=== PATIENT | male | born 1960 | race Caucasian/White ===

== ENCOUNTER 2020-11-17 15:58 | Emergency (ER) | payer OTHER, SELFPAY ==
--- NOTE | ~2020-11-17 | CT_ITS ---
EXAMINATION: CT abdomen pelvis wo con DATE: 11/17/2020 18:24 INDICATION: Hematuria. TECHNIQUE: Computed tomography (CT) of the abdomen and pelvis was performed without intravenous contr ast. Automated exposure control and iterative reconstruction technique were employed. The dose-length product was 335.93 mGy-cm. COMPARISON: 07/25/2018 FINDINGS: Linear discoid atelectasis at the bilateral lung bases. Heart size is normal. Atherosclerotic coronar y artery calcification. No pericardial or pleural effusion. Small sliding-type hiatal hernia. Postope rative change of prior splenectomy with stable appearance of some residual splenosis along with some surgical clips at the splenic fossa. No interval change in an 8 mm low-attenuation hepatic cyst. Gall bladder, pancreas and bilateral adrenal glands are normal. Multiple bilateral renal cysts, the larges t measuring 10.3 cm. No urolithiasis or hydronephrosis. There are few scattered colonic diverticula w ithout adjacent inflammatory change to suggest diverticulitis. Small bowel and appendix are normal. B ladder is normal. No free intraperitoneal gas or fluid. No pathologically enlarged abdominal or pelvi c lymphadenopathy. Small fat-containing umbilical hernia. Severe lower lumbar spondylosis. L2 bone is land. IMPRESSION: 1. Multiple bilateral renal cysts. No urolithiasis or hydronephrosis. Reviewed, dictated and finalized at location A.
[2020-11-17 16:01] VITALS: BP 119/81; PULSE 98; RESP 18; TEMP 36.7; O2SAT 98
[2020-11-17 16:56] LABS: Add Urine Microscopic? YES; Appearance Urine Cloudy (Clear); Bilirubin Urine Negative (Negative); Blood Urine 3+ (Negative); Color Urine Amber (Yellow); Glucose Urine UA Negative (Negative); Ketones Urine Negative (Negative); Leukocyte Esterase Ur 2+ LEU/UL (Negative); Mucus Urine Rare /lpf; Nitrate Urine Negative (Negative); Protein Urine 2+ mg/dL (Negative); RBC Urine >75 /hpf (0-2); Specific Grav Ur 1.021 (1.001-1.035); Squamous Epithelial Cell Urine Rare /hpf (Few); Urobilinogen Urine Negative mg/dL (<2.0); WBC Urine >75 /hpf
--- NOTE | 2020-11-17 17:45 | ED.GENADULT ---
HPI - General Adult General Chief complaint: Urogenital-Male Stated complaint: ? Blood in Urine/I don't feel good Time Seen by Provider: 11/17/20 17:32 History of Present Illness HPI narrative: Patient 60-year-old gentleman who presents the emergency department with chief complaint of hematuria. The patient noticed on Tuesday that he started having some blood in his urine the patient reports he has prior history of kidney stones reports he is discounted felt generally unwell. Patient denies fever denies vomiting denies diarrhea. The patient reports that the symptoms are unimproved by anything nor they worsened by anything the patient reports that his urine color is close to a pink lemonade color denies clots Related Data Home Medications Medication Instructions Recorded Confirmed evolocumab [Repatha SureClick] mg SUBCUT 11/17/20 lisinopril 11/17/20 rivaroxaban [Xarelto] mg 11/17/20 rosuvastatin mg 11/17/20 venlafaxine 25 mg PO DAILY 11/17/20 Allergies Allergy/AdvReac Type Severity Reaction Status Date / Time No Known Allergies Allergy Verified 11/17/20 17:47 Review of Systems Review of Systems: A 10 system review of systems was completed on the patient and is negative except for what is stated in the HPI. Nursing and ancillary documentation was reviewed. Exam Narrative: GENERAL: Well-appearing, well-nourished, and in no acute distress. HEAD: Normocephalic, atraumatic. EYES: PERRLA and EOMI. ENT: Nares clear, no rhinorrhea or epistaxis. Mucous membranes moist. NECK: Supple. CHEST: Clear to auscultation. No respiratory distress. HEART: Regular rate and rhythm. No murmur heard. Normal peripheral pulses. ABDOMEN: Soft, nontender, nondistended, normal active bowel sounds. EXTREMITIES: Normal range of motion. No edema. SKIN: Warm, dry, no rash. NEURO: No focal deficits. Alert and oriented x3. PSYCH: Normal mood and affect. Course Vital Signs Vital signs: Vital Signs Temperature 36.7 C 11/17/20 16:01 Pulse Rate 98 11/17/20 16:01 Respiratory Rate 18 11/17/20 16:01 Blood Pressure 119/81 11/17/20 16:01 Pulse Oximetry 98 11/17/20 16:01 Temperature 36.7 C 11/17/20 16:01 Pulse Rate 90 11/17/20 18:00 Respiratory Rate 18 11/17/20 18:00 Blood Pressure 132/86 11/17/20 18:00 Pulse Oximetry 98 11/17/20 18:00 Medical Decision Making Vital Signs Vital Signs: Vital Signs Temperature 36.7 C 11/17/20 16:01 Pulse Rate 98 11/17/20 16:01 Respiratory Rate 18 11/17/20 16:01 Blood Pressure 119/81 11/17/20 16:01 Pulse Oximetry 98 11/17/20 16:01 Temperature 36.7 C 11/17/20 16:01 Pulse Rate 90 11/17/20 18:00 Respiratory Rate 18 11/17/20 18:00 Blood Pressure 132/86 11/17/20 18:00 Pulse Oximetry 98 11/17/20 18:00 Lab Data Result diagrams: 11/17/20 17:58 11/17/20 17:58 Labs: Lab Results 11/17/20 11/17/20 11/17/20 Range/Units 16:30 17:58 17:58 WBC 12.8 H (4.5-10.0) K/mm3 RBC 5.49 (4.6-6.20) M/mm3 Hgb 17.3 (14.0-18.0) g/dL Hct 52.9 H (42.0-52.0) % MCV 96.4 (80-100) fl MCH 31.5 (26-34) pg MCHC 32.7 (32-36) g/dl RDW 14.4 (11.5-14.5) % Plt Count 219 (150-375) k/mm3 MPV 9.1 (7.4-10.4) fl Immature Gran % (Auto) 0.5 (0-0.5) % Neut % (Auto) 68.8 (45.5-73.1) % Lymph % (Auto) 12.4 L (18.3-44.2) % [place] % (Auto) 17.5 H (2.6-8.5) % Eos % (Auto) 0.5 (0-4.4) % Baso % (Auto) 0.3 (0.2-1.2) % Lymph # (Auto) 1.58 (0.9-3.2) K/mm3 [place] # (Auto) 2.2 H (0.1-0.6) K/mm3 Eos # (Auto) 0.1 (0-0.3) K/mm3 Baso # (Auto) 0.0 (0.0-0.1) K/mm3 Abs Immat Gran (auto) 0.07 H (0.00-0.031) K/mm3 Absolute Neuts (auto) 8.8 H (1.3-6.7) K/mm3 Absolute Nucleated RBC 0.0 (0.0-0.012) K/mm3 Nucleated RBC % 0.0 (0.0-0.2) % PT 15.9 H (11.1-14.7) Seconds INR 1.3 APTT 28.1 (22.3-36.8) SECONDS Sodium (137-145)
[2020-11-17 18:00] VITALS: BP 132/86; PULSE 90; RESP 18; O2SAT 98
[2020-11-17 18:10] LABS: Basophils Percent Auto 0.3 % (0.2-1.2); Eosinophils Absolute Auto 0.1 K/mm3 (0-0.3); Eosinophils Percent Auto 0.5 % (0-4.4); Hematocrit 52.9 % (42.0-52.0); Hemoglobin 17.3 g/dL (14.0-18.0); Immature Granulocyte Absolute 0.07 K/mm3 (0.00-0.031); Immature Granulocyte Percent A 0.5 % (0-0.5); Lymphocytes Absolute Auto 1.58 K/mm3 (0.9-3.2); Lymphocytes Percent Auto 12.4 % (18.3-44.2); Mean Corpuscular HGB Conc 32.7 g/dl (32-36); Mean Corpuscular Hemoglobin 31.5 pg (26-34); Mean Corpuscular Volume 96.4 fl (80-100); Mean Platelet Volume 9.1 fl (7.4-10.4); Monocytes Absolute Auto 2.2 K/mm3 (0.1-0.6); Monocytes Percent Auto 17.5 % (2.6-8.5); Neutrophils Absolute Auto 8.8 K/mm3 (1.3-6.7); Neutrophils Percent Auto 68.8 % (45.5-73.1); Platelet Count Result 219 k/mm3 (150-375); Red Blood Count 5.49 M/mm3 (4.6-6.20); Red Cell Distribution Width 14.4 % (11.5-14.5); White Blood Count 12.8 K/mm3 (4.5-10.0)
[2020-11-17 18:18] LABS: Alanine Aminotransferase 56 U/L (4-50); Albumin Level 4.1 g/dL (3.5-5.1); Alkaline Phosphatase 185 U/L (38-126); Anion Gap 9 mmol/L (8-16); Aspartate Amino Transferase 41 U/L (17-59); Bilirubin,Total 0.7 mg/dL (0.2-1.3); Blood Urea Nitrogen 22 mg/dL (9-20); Calcium 8.5 mg/dL (8.4-10.2); Carbon Dioxide 29 mmol/L (22-30); Chloride 100 mmol/L (98-107); Estimated CRCL calculation 57 ml/min; Estimated Glomerular Filt Rate 56; Glucose 100 mg/dL (65-110); Potassium 4.2 mmol/L (3.4-5.0); Sodium 138 mmol/L (137-145)
[2020-11-17 18:20] LABS: INR 1.3; Prothrombin Time 15.9 Seconds (11.1-14.7)
[2020-11-17 18:21] LABS: Partial Thromboplastin Time 28.1 SECONDS (22.3-36.8)
[2020-11-17 19:50] VITALS: BP 142/90; PULSE 103; RESP 14; O2SAT 95
== END 2020-11-17 19:50 | disposition home or self-care (01) ==
PROVIDERS: Emergency Medicine; Emergency Provider Emergency Medicine; PCP Family Medicine Adolescent Medicine
DX: N30.01 Acute cystitis with hematuria (principal); I25.10 Atherosclerotic heart disease of native coronary artery without angina pectoris; E78.00 Pure hypercholesterolemia, unspecified; I10 Essential (primary) hypertension; I25.2 Old myocardial infarction; Z86.16 Personal history of COVID-19; Z95.5 Presence of coronary angioplasty implant and graft; Z87.442 Personal history of urinary calculi; Z79.01 Long term (current) use of anticoagulants
CPT/HCPCS: 36415; 74176; 80053; 81001; 85025; 85610; 85730; 87077; 87086; 87088; 87186; 96365; 99284; J0696

== ENCOUNTER 2021-04-25 08:24 | Emergency (ER) | payer OTHER, SELFPAY ==
--- NOTE | ~2021-04-25 | US_ITS ---
EXAMINATION: US venous doppler LE EXAM DATE: 04/25/2021 09:07 INDICATION: hx of dvt recent change to anticoagulation. Left leg pain and swelling. TECHNIQUE: Multiple grayscale, color flow and Doppler images of the left lower extremity deep venous system were obtained and reviewed. Comparison is made to prior examination from 09/18/2004. FINDINGS: The left common femoral, femoral and profunda veins demonstrate normal color flow, respirat ory variation, augmentation and compressibility. Compressibility, color flow confirmed within the le ft popliteal, posterior tibial, peroneal, and greater saphenous veins. Reactive right inguinal lymph node. IMPRESSION: 1. No left lower extremity deep venous thrombosis. Reviewed, dictated and finalized at location A. RWRITING DIRECTOR
[2021-04-25 08:35] VITALS: BP 151/94; PULSE 90; RESP 16; TEMP 37.1; O2SAT 97
--- NOTE | 2021-04-25 09:06 | ED.EXTPRO ---
HPI - Extremity Problem General Chief complaint: Extremity Problem,Nontraumatic Stated complaint: swelling and pain to leg Time Seen by Provider: 04/25/21 08:34 Source: patient History of Present Illness HPI Narrative: Patient presents with left leg pain and is concerned for a blood clot so he came to the ER for evaluation. Noted pain and swelling to his left leg on his medial thigh. He reports a history of blood clots has had multiple DVTs and PEs he is on Xarelto chronically thickened a month his doctor cut his dose in half. He denies any trauma to the area denies any chest pain or shortness of breath. Denies any fevers, chills, cough, congestion, nausea, vomiting, diarrhea Related Data Home Medications Medication Instructions Recorded Confirmed evolocumab [Repatha SureClick] mg SUBCUT 11/17/20 lisinopril 11/17/20 rivaroxaban [Xarelto] mg 11/17/20 rosuvastatin mg 11/17/20 venlafaxine 25 mg PO DAILY 11/17/20 Allergies Allergy/AdvReac Type Severity Reaction Status Date / Time No Known Allergies Allergy Verified 11/17/20 17:47 Review of Systems Review of Systems: CONSTITUTIONAL: Denies fever, chills, or sweats. EYES: Denies visual changes, redness, or discharge. ENT: Denies rhinorrhea, congestion, sore throat, or otalgia. CARDIOVASCULAR: Denies chest pain, palpitations, or edema. RESPIRATORY: Denies cough or dyspnea. GASTROINTESTINAL: Denies abdominal pain, nausea, vomiting, or diarrhea. GENITOURINARY: Denies dysuria or hematuria. SKIN: Denies rash or itching. MUSCULOSKELETAL: Denies back pain, joint pain, or myalgia. NEUROLOGIC: Denies headache, numbness, dizziness, or weakness. PSYCHIATRIC: Denies anxiety or depression. All systems reviewed & are unremarkable except as noted in HPI and below PMFSH Past Medical History Medical History (Updated 04/25/21 @ 09:44 by Luis Bills MD) DVT (deep venous thrombosis) Pulmonary embolism Social History Social History (Updated 04/25/21 @ 09:09 by Luis Bills MD) Living arrangements: with family Exam Narrative: GENERAL: Well-appearing, well-nourished, and in no acute distress. HEAD: Normocephalic, atraumatic. EYES: PERRLA and EOMI. ENT: Nares clear, no rhinorrhea or epistaxis. Mucous membranes moist. NECK: Supple. No masses. No JVD CHEST: Clear to auscultation. No respiratory distress. No wheezes rales or rhonchi HEART: Regular rate and rhythm. No murmur heard. Normal peripheral pulses. ABDOMEN: Soft, nontender, nondistended, normal active bowel sounds. EXTREMITIES: Large area of erythema and warmth on the medial anterior aspect of the left thigh there is no focal fluctuance there are no open or draining wounds no tenderness on the medial aspect of the thigh along the large venous vessels SKIN: Warm, dry, no rash. NEURO: No focal deficits. Alert and oriented x3. PSYCH: Normal mood and affect. Course Reevaluation(s) Reevaluation #1: Results and plan reviewed with patient. Patient is comfortable outpatient plan. Date: 04/25/21 Time: 09:42 Vital Signs Vital signs: Vital Signs Temperature 37.1 C 04/25/21 08:35 Pulse Rate 90 04/25/21 08:35 Respiratory Rate 16 04/25/21 08:35 Blood Pressure 151/94 H 04/25/21 08:35 Pulse Oximetry 97 04/25/21 08:35 Temperature 37.1 C 04/25/21 09:19 Pulse Rate 80 04/25/21 09:19 Respiratory Rate 16 04/25/21 09:19 Blood Pressure 112/82 04/25/21 09:19 Pulse Oximetry 94 04/25/21 09:19 MDM - Extremity (Nontraumatic) MDM Narrative Medical decision making narrative: H&P as above, vss, pt looks clinically well, exam warmth swelling and tenderness of the thigh, imaging without a DVT, additional labs/img considered, symptomatic relief available as needed, on reevaluation pt continues to looks clinically well. Ultrasound was ordered given patient's clinical history of DVTs however exam was more suggestive of a cellulitis suspect cellulitis, dns necrotizing soft tissue infection, sever
[2021-04-25 09:19] VITALS: BP 112/82; PULSE 80; RESP 16; TEMP 37.1; O2SAT 94
[2021-04-25 09:58] VITALS: BP 118/75; PULSE 77; RESP 16; TEMP 36.6
== END 2021-04-25 10:07 | disposition home or self-care (01) ==
PROVIDERS: Emergency Provider Emergency Medicine; PCP Family Medicine Adolescent Medicine
DX: L03.116 Cellulitis of left lower limb (principal); Z86.718 Personal history of other venous thrombosis and embolism; Z86.711 Personal history of pulmonary embolism; Z79.01 Long term (current) use of anticoagulants
CPT/HCPCS: 93971; 99284

== ENCOUNTER 2021-06-18 13:57 | Outpatient (CLI) | payer OTHER, SELFPAY ==
[2021-06-18 14:08] LABS: Basophils Absolute Auto 0.1 K/mm3 (0.0-0.1); Basophils Percent Auto 0.5 % (0.2-1.2); Eosinophils Absolute Auto 0.2 K/mm3 (0-0.3); Eosinophils Percent Auto 1.6 % (0-4.4); Hematocrit 50.6 % (42.0-52.0); Hemoglobin 16.1 g/dL (14.0-18.0); Immature Granulocyte Absolute 0.03 K/mm3 (0.00-0.031); Immature Granulocyte Percent A 0.3 % (0-0.5); Lymphocytes Absolute Auto 2.53 K/mm3 (0.9-3.2); Lymphocytes Percent Auto 24.3 % (18.3-44.2); Mean Corpuscular HGB Conc 31.8 g/dl (32-36); Mean Corpuscular Hemoglobin 30.3 pg (26-34); Mean Corpuscular Volume 95.1 fl (80-100); Mean Platelet Volume 9.1 fl (7.4-10.4); Monocytes Absolute Auto 1.3 K/mm3 (0.1-0.6); Monocytes Percent Auto 12.3 % (2.6-8.5); Neutrophils Absolute Auto 6.3 K/mm3 (1.3-6.7); Platelet Count Result 285 k/mm3 (150-375); Red Blood Count 5.32 M/mm3 (4.6-6.20); Red Cell Distribution Width 14.8 % (11.5-14.5); White Blood Count 10.4 K/mm3 (4.5-10.0)
[2021-06-18 14:11] LABS: Blood Urea Nitrogen 26 mg/dL (8-26); Carbon Dioxide 29 mmol/L (22-30); Chloride 99 mmol/L (98-109); Estimated Glomerular Filt Rate > 60; Glucose 100 mg/dL (70-105); Ionized Calcium (POC) 1.15 mmol/L (1.11-1.31); Potassium 4.1 mmol/L (3.5-4.9); Sodium 138 mmol/L (138-146)
[2021-06-18 14:28] LABS: Alanine Aminotransferase 26 U/L (4-50); Albumin Level 4.2 g/dL (3.5-5.1); Alkaline Phosphatase 42 U/L (38-126); Anion Gap 6 mmol/L (8-16); Aspartate Amino Transferase 87 U/L (17-59); Bilirubin,Total 0.3 mg/dL (0.2-1.3); Blood Urea Nitrogen 25 mg/dL (9-20); Calcium 8.5 mg/dL (8.4-10.2); Carbon Dioxide 30 mmol/L (22-30); Chloride 101 mmol/L (98-107); Estimated Glomerular Filt Rate > 60; Glucose 103 mg/dL (65-110); Potassium 4.1 mmol/L (3.4-5.0); Sodium 137 mmol/L (137-145)
== END 2021-06-18 13:58 | disposition home or self-care (01) ==
LOC: ANHLAB 13:58
PROVIDERS: PCP Family Medicine Adolescent Medicine; Visit Provider Internal Medicine Hematology & Oncology
DX: I26.99 Other pulmonary embolism without acute cor pulmonale (principal)
CPT/HCPCS: 36415; 80047; 80053; 85025

== ENCOUNTER 2022-04-07 09:49 | Outpatient (CLI) | payer OTHER, SELFPAY ==
--- NOTE | 2022-04-07 11:00 | NEURO_ITS ---
Impression: # Complains of paresthesia of lower extremities. # Normal motor and sensory nerve conduction study though extra strength stimulation required. # Needle/EMG exam revealed neurogenic changes. # Clinical correlation recommended; Findings could be suggestive of early neuropathy. Motor Nerve Conduction Lower Extremities Peroneal Nerve Conduction Velocity (m/sec) Terminal Latency (msec) Response Voltage(mV) Popliteal space-Ankle Ankle Extensor Dig Brevis Popliteal space Ankle Right 45 4.1 2 1 Left 49 4.1 1 1 Tibial Nerve Conduction Velocity (m/sec) Terminal Latency (msec) Response Voltage(mV) Popliteal space-Ankle Ankle-Extensor Dig Brevis Popliteal space Ankle Right 44 4.5 2 2 Left 45 4.4 2 3 F-waves Peroneal Nerve (ms) Tibial Nerve (ms) Right 52.5 54.6 Left 51.4 54.5 Sensory Nerve Conduction Lower Extremities Sural Nerve Stimulation Terminal Latency (msec) Ankle Response Voltage (uV) Ankle Response Velocity (m/sec) Right 4.3 8 37 Left 4.4 8 37 Superficial Peroneal Nerve Stimulation Terminal Latency (msec) Ankle Response Voltage (uV) Ankle Response Velocity (m/sec) Right 4.1 1 39 Left 4.1 6 39 Left Right Muscles Examined Fibrillation Fasciculation Scarcity Voltage Duration Left Right Left Right Left Right Left Right Left Right X X Ant Tibialis >12ms >12ms X X Gastroc X X Fibularis Long X X Flex Dig Long >12ms >12ms X X Ext Dig Brev >12ms >12ms Abd Hallucis X X Quadriceps Paraspinals MTDD
== END 2022-04-07 09:50 | disposition home or self-care (01) ==
LOC: ANHNEURO 09:50
PROVIDERS: PCP Family Medicine Adolescent Medicine; Visit Provider Family Medicine Adolescent Medicine
DX: R20.2 Paresthesia of skin (principal)
CPT/HCPCS: 95886; 95910

== ENCOUNTER 2022-08-18 08:34 | Outpatient (CLI) | payer OTHER, SELFPAY ==
[2022-08-18 08:46] LABS: Basophils Absolute Auto 0.1 K/mm3 (0.0-0.1); Basophils Percent Auto 0.7 % (0.2-1.2); Eosinophils Absolute Auto 0.2 K/mm3 (0-0.3); Eosinophils Percent Auto 1.6 % (0-4.4); Hematocrit 39.7 % (42.0-52.0); Hemoglobin 12.9 g/dL (14.0-18.0); Immature Granulocyte Absolute 0.02 K/mm3 (0.00-0.031); Immature Granulocyte Percent A 0.2 % (0-0.5); Lymphocytes Absolute Auto 7.98 K/mm3 (0.9-3.2); Lymphocytes Percent Auto 65.8 % (18.3-44.2); Mean Corpuscular HGB Conc 32.5 g/dl (32-36); Mean Corpuscular Hemoglobin 26.4 pg (26-34); Mean Corpuscular Volume 81.2 fl (80-100); Mean Platelet Volume 8.7 fl (7.4-10.4); Monocytes Absolute Auto 1.1 K/mm3 (0.1-0.6); Monocytes Percent Auto 9.4 % (2.6-8.5); Neutrophils Absolute Auto 2.7 K/mm3 (1.3-6.7); Neutrophils Percent Auto 22.3 % (45.5-73.1); Platelet Count Result 280 k/mm3 (150-375); Red Blood Count 4.89 M/mm3 (4.6-6.20); Red Cell Distribution Width 20.3 % (11.5-14.5); White Blood Count 12.1 K/mm3 (4.5-10.0)
[2022-08-18 08:50] LABS: Blood Urea Nitrogen 24 mg/dL (8-26); Carbon Dioxide 26 mmol/L (22-30); Chloride 100 mmol/L (98-109); Estimated Glomerular Filt Rate 56; Glucose 98 mg/dL (70-105); Ionized Calcium (POC) 1.23 mmol/L (1.11-1.31); Potassium 4.5 mmol/L (3.5-4.9); Sodium 137 mmol/L (138-146)
[2022-08-18 08:52] LABS: Platelet Estimate Adequate (Adequate)
[2022-08-18 08:53] LABS: Atypical Lymphocytes Present; Schistocytes None Seen (NORMAL)
[2022-08-18 09:11] LABS: Alanine Aminotransferase 28 U/L (6-50); Albumin Level 4.3 g/dL (3.5-5.1); Alkaline Phosphatase 58 U/L (38-126); Anion Gap 7 mmol/L (8-16); Aspartate Amino Transferase 46 U/L (17-59); Bilirubin,Total 0.6 mg/dL (0.2-1.3); Blood Urea Nitrogen 25 mg/dL (9-20); Calcium 9.1 mg/dL (8.4-10.2); Carbon Dioxide 30 mmol/L (22-30); Chloride 99 mmol/L (98-107); Estimated Glomerular Filt Rate > 60; Glucose 96 mg/dL (65-110); Potassium 4.6 mmol/L (3.4-5.0); Sodium 136 mmol/L (137-145)
[2022-08-18 09:46] LABS: Lactate Dehydrogenase 177 U/L (120-246)
[2022-08-18 10:19] LABS: Iron 87 ug/dL (49-181)
[2022-08-18 10:29] LABS: Percent Iron Saturation 18 % (20-50)
[2022-08-18 10:50] LABS: Folic Acid 14.8 ng/mL (2.76->20)
== END 2022-08-18 08:35 | disposition home or self-care (01) ==
LOC: ANHLAB 08:36
PROVIDERS: PCP Family Medicine Adolescent Medicine; Visit Provider Internal Medicine Hematology & Oncology
DX: I26.99 Other pulmonary embolism without acute cor pulmonale (principal); D64.9 Anemia, unspecified
CPT/HCPCS: 36415; 80047; 80053; 82607; 82728; 82746; 83540; 83550; 83615; 85025

== ENCOUNTER 2022-08-24 13:22 | Outpatient (CLI) | payer OTHER, SELFPAY ==
--- NOTE | ~2022-08-24 | CT_ITS ---
Clinical Indication: Swelling, mass CT Scan of the Neck, Chest, Abdomen, and Pelvis with Contrast: Technique: Contiguous sections were acquired throughout the neck, chest, abdomen, and pelvis after in travenous administration of 100 cc of Omnipaque 350. Dose reduction technique was used on this scan by utilizing automated exposure control and iterative reconstruction technique. The dose-length produ ct (DLP) was 2129.73 mGy-cm. COMPARISON: 11/17/2020 Findings: There are numerous mildly enlarged bilateral supraclavicular and cervical lymph nodes, thro ughout the bilateral cervical chains. There is somewhat asymmetric enlargement of the left masseter m uscle as compared to the right, without discrete mass lesion evident within it. Bilateral parotid and submandibular glands are unremarkable. Parapharyngeal fat preserved bilaterally. No abscess or fluid collection evident in the neck. Thyroid gland unremarkable. There are shotty bilateral axillary lymph nodes. There are enlarged superior right paratracheal strip e lymph nodes, largest measuring 2.5 x 1.9 cm in size, with multiple additional shotty mediastinal ly mph nodes present. Mediastinal vascular structures are grossly unremarkable. Small hiatal hernia pres ent. There is no evidence of pleural or pericardial effusion. The lungs are clear. No pulmonary nodules or infiltrates are noted. The liver, pancreas, gallbladder, and adrenal glands are within normal limits. There is evidence of p rior splenectomy. Multiple large bilateral simple renal cysts are present. No evidence of aortic aneu rysm. There is extensive retroperitoneal and central mesenteric lymphadenopathy. There is additional lymphadenopathy in the peripancreatic region/ray hepatis.. No bowel obstruction or bowel wall thickening. There is no evidence to suggest acute appendicitis. Sm all fat-containing umbilical hernia present. Urinary bladder is unremarkable. Prostate gland is enlarged. There is additional lymphadenopathy jennyfer g the bilateral common and external iliac chains, and along the bilateral pelvic sidewalls. There are multiple shotty/mildly enlarged inguinal lymph nodes bilaterally. Impression: Extensive lymphadenopathy, as detailed above, worst in the abdomen/pelvis, but with additional involv ement in the neck and chest. Findings are consistent with lymphoma. Recommend tissue sampling to esta blish a histologic diagnosis if not already performed. Small fat-containing umbilical hernia. Small hiatal hernia. Reviewed, dictated and finalized at location . Impression: Extensive lymphadenopathy, as detailed above, worst in the abdomen/pelvis, but with additional involvement in the neck and chest. Findings are consistent with lymphoma. Recommend tissue sampling to establish a histologic diagnosis if not already performed. Small fat-containing umbilical hernia. Small hiatal hernia.
== END 2022-08-24 13:23 | disposition home or self-care (01) ==
LOC: ANHIMG 13:23
PROVIDERS: PCP Family Medicine Adolescent Medicine; Visit Provider Internal Medicine Hematology & Oncology
DX: R59.1 Generalized enlarged lymph nodes (principal); K42.9 Umbilical hernia without obstruction or gangrene; K44.9 Diaphragmatic hernia without obstruction or gangrene
CPT/HCPCS: 70491; 71260; 74177; Q9967

== ENCOUNTER 2022-09-07 10:45 | Outpatient (CLI) | payer OTHER, SELFPAY | END 2022-09-07 10:46 | disposition home or self-care (01) | LOC: ANHLAB 10:46 | PROVIDERS: PCP Family Medicine Adolescent Medicine; Visit Provider Internal Medicine Hematology & Oncology | DX: D64.9 Anemia, unspecified (principal) | CPT/HCPCS: 88184 ==

== ENCOUNTER 2022-10-04 00:42 | Day surgery (SDC) | payer OTHER, SELFPAY ==
[2022-09-29 10:01] VITALS: BMI 29.0
--- NOTE | 2022-09-29 10:06 | PC.NURSE ---
Report to the Outpatient Waiting Room, entrance under the green pavilion located off [facility], at time 6:00 on date 10/04/22. Planned Procedure Time: 7:30. Time changes happen often and if your time is changed the preop area will call you the afternoon before. - You and your visitor will be asked to self-screen and do not enter if you have any COVID symptoms. - A mask is optional within the hospital at this time. Patients may have clear liquids (water, carbonated beverages, clear teas, apple juice) until 3 hours prior to surgery with a maximum of 20 ounces. - No food from midnight until time of surgery Take the following medications with a SIP of water the morning of surgery: ESCITALOPRAM DO NOT STOP ANY OF YOUR OTHER PRESCRIPTION MEDICATIONS PRIOR TO SURGERY ?EXCEPT THE FOLLOWING Medications to discontinue per physician: ELIQUIS Date to take last dose: 3 DAYS PRE-OP (PER NOTE ON CHART) Please no make-up, nail anguillan, hairspray, perfume, deodorant, or body powder the day of surgery. No jewelry (including any body piercings) or valuables the day of surgery, leave them at home. Please take a shower or bath the night before, or the morning of, surgery with an antibacterial soap. Wear comfortable, loose fitting clothing. - Jewelry must be removed prior to entering the operating room. Rings and piercings that are not removed may be cut off. - The hospital will not accept responsibility for valuables. - Please leave all valuables, including medications, at home the day of surgery. If you are going home after surgery, a licensed company tanker truck driver must drive you home. - NO public transportation without another adult if you receive anesthesia. - We recommend that an adult stay with you for 24 hours following discharge. - We also recommend that you do not drive, make important decision, drink alcoholic beverages, or take any drugs that were not prescribed by your health care provider for at least 24 hours after your discharge time. Follow any additional instructions given to you from your surgeon. If you or anyone in your household have experienced Covid symptoms in the past week, please notify your surgeon or the nurse liaison at the phone number below for possible testing. Telephone instructions given to PT - GILL TOWNSEND and asked if any additional questions and then verbalized understanding. Patient advised to call surgeon office or pre surgery nurse liaison [phone] if any additional questions.
--- NOTE | ~2022-10-04 | XR_ITS ---
EXAMINATION: XR fl guide central line place DATE: 10/04/2022 08:19 INDICATION: Left-sided port catheter insertion TECHNIQUE: Single fluoroscopic image of the central chest was obtained during procedure performed by Dr. Bragg. Radiologist was not present for the imaging or procedure. The amount of fluoroscopy time u sed during this procedure was 0.6 minutes. COMPARISON: None. FINDINGS/IMPRESSION: Fluoroscopy utilized during left subclavian central venous port catheter placement with distal tip at the superior cavoatrial junction. See procedure note for further detail. Reviewed, dictated and finalized at location B.
--- NOTE | ~2022-10-04 | XR_ITS ---
Portable chest x-ray Comparison: 09/21/2004 Clinical History: Port-A-Cath placement Findings: Left-sided Port-A-Cath is in satisfactory position. Lungs are clear, without focal consoli dation, pleural effusion, or pneumothorax. Cardiomediastinal silhouette is stable. Bones and soft ti ssues are unremarkable. Impression: Left-sided Port-A-Cath in place. Clear lungs. Reviewed, dictated and finalized at location M. Impression: Left-sided Port-A-Cath in place. Clear lungs.
[2022-10-04 06:05] VITALS: BP 108/67; PULSE 70; RESP 16; TEMP 36.2; O2SAT 96; BMI 28.6
--- NOTE | 2022-10-04 06:27 | WPDANESEPPF ---
Anes - Initial Pre Proc Eval Procedure: Operation Date: 10/04/22 07:30 Proposed Procedures p Insertion Esme Cath - Lisa Bragg MD Date/Time: 10/04/22 06:27 Surgeon: Lisa Bragg MD Pre Op Diagnosis: Sm B Cell Lymphoma Patient Data Age: 62 Gender: M Height: 1.8 m Weight: 94.35 kg Allergies Allergy/AdvReac Type Severity Reaction Status Date / Time bupropion AdvReac Intermediate Other Verified 10/04/22 06:25 vortioxetine AdvReac Intermediate Other Verified 10/04/22 06:25 [From Trintellix] tamsulosin [From Flomax] AdvReac Unknown Other Verified 10/04/22 06:25 Home Medications Medication Instructions Recorded Confirmed Type evolocumab 140 mg/mL subcutaneous 140 mg subcut 2XW 11/17/20 09/29/22 History pen injector (Anthony Rhoades) rosuvastatin 40 mg tablet 40 mg PO DAILY 11/17/20 09/29/22 History apixaban 2.5 mg tablet (Eliquis) 2.5 mg PO BID 10/08/21 10/04/22 History escitalopram oxalate 20 mg tablet 20 mg PO DAILY #90 tabs 10/08/21 10/04/22 Rx lisinopril 5 mg tablet 10 mg PO DAILY 10/08/21 09/29/22 History tadalafil 5 mg tablet 5 mg PO DAILY 10/08/21 09/29/22 History ropinirole 0.25 mg tablet 0.25 mg PO QHS #30 tabs 09/06/22 09/29/22 Rx Patient hx anesthesia problems: none Family hx anesthesia problems: none Results Review: All pre-operative results and documents have been reviewed as part of the pre-operative evaluation. [facility] Past Medical History Medical History DVT (deep venous thrombosis) (12/2017) Hx of acute myocardial infarction (2008) Pulmonary embolism (12/2017) Surgical History Surgical History History of Rashawn fundoplication (2004) Hx of prostate biopsy (2016) Hx of splenectomy (2004) Incidental during Rashawn Family History Family History Father Acute myocardial infarction Colon cancer Malignant neoplasm of prostate Carcinoma of colon Colon polyp Heart disease Hypertension Social History Social History Smoking status: Never smoker Second hand tobacco smoke exposure: No Alcohol intake: current Alcohol use details: 1 BOTTLE OF WINE/WEEK Substance use: never Substance use type: does not use Living arrangements: with family Occupation/Education: occupation Gender identity (if verbalized by the patient): Male Spiritual care concerns: No Agree to blood products: Yes Anes - Eval Final PreProcedure Day of Procedure 10/04/22 06:27 Patient weight: overweight Heart: regular rate and rhythm Lungs: clear to auscultation Airway: Mallampati scale class II Neurological: alert and oriented Last oral intake: >/= 8 hours ASA classification: IV Emergent: no Anesthetic plan: proceed Anesthesia type and monitoring: general GIVS and standard monitoring Results Review: All pre-operative results and documents have been reviewed as part of the pre-operative evaluation. Informed Consent: The patient's anesthetic plan and its attendant risks and benefits were discussed with the patient/family/POA. Questions were solicited and answers provided to the satisfaction of the patient/family/POA.
[2022-10-04] MEDS: LACTATED RINGERS 1,000 ML 30 ML IV CONT (06:35)
[2022-10-04] MEDS: KETOROLAC 15 MG/ML VIAL (*BKC) IV PUSH (06:42)
[2022-10-04 06:59] LABS: Prothrombin Time 13.4 Seconds (11.1-14.7)
[2022-10-04 07:00] LABS: Partial Thromboplastin Time 24.4 SECONDS (22.3-36.8)
--- NOTE | 2022-10-04 07:20 | PM.IMHP ---
H&P: HPI History of Present Illness Date/Time: 10/04/22 07:20 Chief Complaint: B cell lymphoma Narrative: Pt is a 62 y/o M presenting for VAD placement. Pt needing access for chemotherapy for B cell lymphoma. Pt denies any previous central venous catheterization. Pt is right handed. Review of Systems Review of Systems: All systems reviewed & are unremarkable except as noted in HPI and below PMFSH Past Medical History Medical History DVT (deep venous thrombosis) (12/2017) Hx of acute myocardial infarction (2008) Pulmonary embolism (12/2017) Surgical History Surgical History History of Rashawn fundoplication (2004) Hx of prostate biopsy (2016) Hx of splenectomy (2004) Incidental during Rashawn Family History Family History Father Acute myocardial infarction Colon cancer Malignant neoplasm of prostate Carcinoma of colon Colon polyp Heart disease Hypertension Social History Social History Smoking status: Never smoker Second hand tobacco smoke exposure: No Alcohol intake: current Alcohol use details: 1 BOTTLE OF WINE/WEEK Substance use: never Substance use type: does not use Living arrangements: with family Occupation/Education: occupation Gender identity (if verbalized by the patient): Male Spiritual care concerns: No Agree to blood products: Yes Meds Home Medications and Allergies Home Medications Medication Instructions Recorded Confirmed Type evolocumab 140 mg/mL subcutaneous 140 mg subcut 2XW 11/17/20 09/29/22 History pen injector (Anthony Rhoades) rosuvastatin 40 mg tablet 40 mg PO DAILY 11/17/20 09/29/22 History apixaban 2.5 mg tablet (Eliquis) 2.5 mg PO BID 10/08/21 10/04/22 History escitalopram oxalate 20 mg tablet 20 mg PO DAILY #90 tabs 10/08/21 10/04/22 Rx lisinopril 5 mg tablet 10 mg PO DAILY 10/08/21 09/29/22 History tadalafil 5 mg tablet 5 mg PO DAILY 10/08/21 09/29/22 History ropinirole 0.25 mg tablet 0.25 mg PO QHS #30 tabs 09/06/22 09/29/22 Rx Allergies Allergy/AdvReac Type Severity Reaction Status Date / Time bupropion AdvReac Intermediate Other Verified 10/04/22 06:25 vortioxetine AdvReac Intermediate Other Verified 10/04/22 06:25 [From Trintellix] tamsulosin [From Flomax] AdvReac Unknown Other Verified 10/04/22 06:25 Exam Const: General: cooperative, comfortable and no acute distress Neck: Neck: normal visual inspection and full ROM Chest: Chest palpation & inspection: normal inspection of the chest Resp: Effort & Inspection: normal respiratory effort Auscultation: clear to auscultation bilaterally Cardio: Rate: regular rate Rhythm: regular rhythm GI: Inspection: normal to inspection Assessment and Plan Assessment and plan (1) CLL (chronic lymphocytic leukemia): Code(s): C91.10 - Chronic lymphocytic leukemia of B-cell type not having achieved remission Status: Acute Assessment and Plan: will setup for VAD placement
--- NOTE | 2022-10-04 07:22 | WPDHPUPDATE1 ---
History and Physical Update Update Date/Time: 10/04/22 07:22 History and Physical has been reviewed, including an updated exam of the patient. There are NO changes in the patient's condition. Risks, benefits, and alternatives have been discussed and questions answered. Patient agrees to proceed with procedure.
[2022-10-04] MEDS: ceFAZolin 2 GM/D5W 50 ML 2 GM/50 ML BAG IVPB (07:34)
[2022-10-04] MEDS: BUPIVACAINE/EPINEPHRINE 0.25% 10 ML VIAL 30 ML INFILTRATE (07:46)
[2022-10-04] MEDS: HEPARIN SODIUM 5,000 UNITS/ML VIAL 5000 UNITS IRRIGATION (07:58)
[2022-10-04] MEDS: HEPARIN SODIUM, PORCINE 10,000 UNITS/10 ML VIAL 3000 UNITS IRRIGATION (08:03)
[2022-10-04 08:25] VITALS: BP 98/62; PULSE 65; RESP 14; O2SAT 94
--- NOTE | 2022-10-04 08:47 | W.PM.PROC2 ---
Procedure Note - Detailed Date of Procedure 10/04/22 Pre-op Diagnosis lymphoma Post-op Diagnosis Same Procedure Performed Placement of left subclavian venous access device under fluoroscopic guidance Surgeon Lisa Bragg MD Anesthesia MAC and Local Indications 62-year-old male presenting for access for chemotherapy for treatment of lymphoma Findings first stick L SCV Description of Procedure Patient was brought into the operating room and placed in the supine position. After adequate induction of mac anesthesia, the patient was prepped and draped in normal sterile fashion. Time-out was then done to verify the patient's identity, as well as the procedure being performed. I began by making a small incision in the left chest, I then gained access into the left subclavian vein with an 18 gauge needle. I then placed the guidewire into the vein and confirmed placement via fluoroscopic guidance. I then locally anesthetized the area in the left chest. I then enlarged the incision around the guidewire including making a subcutaneous pocket inferiorly to allow placement of the port itself. I then placed a dilating sheath over the guidewire into the left subclavian vein via sterile Seldinger technique. This was once again done and confirmed via fluoroscopic guidance. I then removed the dilator and the guidewire, now just leaving the sheath in the vein. I then fed the previously flushed catheter into the left subclavian vein under fluoroscopic guidance. At approximately 20 cm, the catheter was noted to be near the atrial caval junction. I then peeled away the sheath, now just leaving the catheter in the vein. I then was able to easily draw and flush from the catheter. The catheter was cut to fit and attached to the port itself. The port was placed into the previously made subcutaneous pocket and sutured in with 0 Ethibond suture. Final fluoroscopic view showed the termination of the catheter at the atrial caval junction with a nice smooth curvature back to the port itself. I was able to gain access to the port with a Cope needle and was able to easily draw and flush from the port. I then flushed 4 cc of a final heparin flush into the port. The incision was closed with 3 0 Vicryl suture in the subcutaneous tissue and the skin was closed with 4 O Monocryl subcuticular suture. Dermabond was then placed on wound. The patient tolerated the procedure well and will be sent to the recovery room in stable condition. Implants L SCV VAD Estimated Blood Loss 5 Drains No Packing No Pathology None sent Complications No immediate complications Condition Stable Disposition PACU [facility] Billing Surgery - Charge Forward: Surgery Billing
[2022-10-04 08:55] VITALS: BP 89/56; PULSE 60; RESP 16
[2022-10-04 09:15] VITALS: BP 98/60; PULSE 56; RESP 16
== END 2022-10-04 09:31 | disposition home or self-care (01) ==
PROVIDERS: PCP Family Medicine Adolescent Medicine; Visit Provider Surgery
PROC: (CPT 36561; principal; 2022-10-04 07:30)
DX: C91.10 Chronic lymphocytic leukemia of B-cell type not having achieved remission (principal); Z86.718 Personal history of other venous thrombosis and embolism; I25.2 Old myocardial infarction; Z86.711 Personal history of pulmonary embolism; Z79.01 Long term (current) use of anticoagulants
CPT/HCPCS: 36561; 36415; 77001; 85610; 85730; C1788; J0690; J1644; J1885; J2250; J2405; J2704; J3010; J7030; J7120

== ENCOUNTER 2023-03-31 07:23 | Outpatient (CLI) | payer OTHER, SELFPAY ==
--- NOTE | ~2023-03-31 | CT_ITS ---
Clinical Indication: Lymphoma CT Scan of the Chest, Abdomen, and Pelvis with Contrast: Technique: Contiguous sections were acquired throughout the chest, abdomen, and pelvis after intraven ous administration of 100 cc of Omnipaque 350. Dose reduction technique was used on this scan by amol greenfield automated exposure control and iterative reconstruction technique. The dose-length product (DL P) was 923.41 mGy-cm. COMPARISON: 08/24/2022 Findings: Previously noted superior mediastinal lymphadenopathy is markedly improved, largest lymph node now me asuring 1.1 x 0.6 cm in size. Axillary lymphadenopathy is resolved. The mediastinal soft tissues and vascular structures essentially appear normal. There is no evidence of pleural or pericardial effusion. The lungs are clear. No pulmonary nodules or infiltrates are noted. The liver, pancreas, gallbladder, and adrenal glands are within normal limits. Patient is status post splenectomy. Multiple large bilateral renal cysts are present. No evidence of aortic aneurysm. Previ ously noted mesenteric and retroperitoneal lymphadenopathy is essentially completely resolved, with n o pathologic lymphadenopathy identified currently.. No bowel obstruction or bowel wall thickening. There is no evidence to suggest acute appendicitis. Sm all fat-containing umbilical hernia present. Urinary bladder is unremarkable. No pelvic mass seen. No ascites. Impression: Essentially complete response to interval therapy. No pathologic lymphadenopathy identified on the cu rrent exam. Status post splenectomy. Numerous renal cysts. Small fat-containing umbilical hernia. Reviewed, dictated and finalized at [facility]. INE [employer]IVER Impression: Essentially complete response to interval therapy. No pathologic lymphadenopath y identified on the current exam. Status post splenectomy. Numerous renal cysts. Small fat-containing umbilical hernia.
== END 2023-03-31 07:24 | disposition home or self-care (01) ==
LOC: ANHIMG 07:26
PROVIDERS: PCP Family Medicine Adolescent Medicine; Visit Provider Internal Medicine Hematology & Oncology
DX: C83.00 Small cell B-cell lymphoma, unspecified site (principal); N28.1 Cyst of kidney, acquired; K42.9 Umbilical hernia without obstruction or gangrene; Z90.81 Acquired absence of spleen
CPT/HCPCS: 71260; 74177; Q9967

== ENCOUNTER 2023-09-06 01:29 | Day surgery (SDC) | payer OTHER, SELFPAY ==
[2023-08-25 14:22] VITALS: BMI 29.7
--- NOTE | 2023-08-25 14:53 | PC.NURSE ---
Spoke with PATIENT regarding medications. Pt. verbalizes understanding that the last dose of ELIQUIS is to be taken on 09/03/2023 and the Endoscopist will instruct them when to restart after the procedure.
[2023-09-06 07:40] VITALS: BP 120/79; PULSE 75; RESP 16; TEMP 36.1; O2SAT 97
[2023-09-06] MEDS: LACTATED RINGERS 1,000 ML 150 ML IV CONT (07:47)
--- NOTE | 2023-09-06 08:43 | WPDANESEPPF ---
Anes - Initial Pre Proc Eval Procedure: Operation Date: 09/06/23 09:00 Proposed Procedures p Screening Colonoscopy - John Cohn DO Date/Time: 09/06/23 08:43 Surgeon: John Cohn DO Pre Op Diagnosis: Screening for malignant neoplasm of colon Patient Data Age: 63 Gender: M Height: 1.8 m Weight: 91.7 kg Last Vital Signs Temp 96.9 F L 09/06/23 07:40 Pulse 75 09/06/23 07:40 Resp 16 09/06/23 07:40 BP 120/79 09/06/23 07:40 Pulse Ox 97 09/06/23 07:40 O2 Del Method Room Air 09/06/23 07:40 Allergies Allergy/AdvReac Type Severity Reaction Status Date / Time bupropion Allergy Intermediate Tinnitus Verified 09/06/23 07:37 vortioxetine Allergy Intermediate Other Verified 09/06/23 07:37 [From Trintellix] tamsulosin [From Flomax] Allergy Unknown allergies Verified 09/06/23 07:37 Home Medications Medication Instructions Recorded Confirmed Type evolocumab 140 mg/mL subcutaneous 140 mg subcut 2XW 11/17/20 08/25/23 History pen injector (Repatha SureJesusick) apixaban 2.5 mg tablet (Eliquis) 2.5 mg PO BID 10/08/21 09/06/23 History lisinopril 5 mg tablet 10 mg PO DAILY 10/08/21 08/25/23 History tadalafil 5 mg tablet 5 mg PO DAILY 10/08/21 08/25/23 History escitalopram oxalate 20 mg tablet 20 mg PO DAILY #90 tabs 05/25/23 08/25/23 Rx terbinafine HCl 250 mg tablet 250 mg PO DAILY #90 tabs 05/25/23 08/25/23 Rx ferrous sulfate 324 mg (65 mg 324 mg PO BID 08/25/23 08/25/23 History iron) tablet,delayed release Patient hx anesthesia problems: none Family hx anesthesia problems: none Results Review: All pre-operative results and documents have been reviewed as part of the pre-operative evaluation. [facility] Past Medical History Medical History DVT (deep venous thrombosis) (12/2017) Hx of acute myocardial infarction (2009) Pulmonary embolism (12/2017) Surgical History Surgical History History of Rashawn fundoplication (2004) Hx of prostate biopsy (2016) Hx of splenectomy (2004) Incidental during Rashawn Family History Family History Father Acute myocardial infarction Colon cancer Malignant neoplasm of prostate Carcinoma of colon Colon polyp Heart disease Hypertension Social History Social History (Updated 05/25/23 @ 07:56 by Olivia Mills [facility]) Smoking status: Never smoker Second hand tobacco smoke exposure: No Alcohol intake: current Drinks per week: 4 Alcohol use details: WINE Substance use: never Substance use type: does not use Do You Feel Safe in your Home?: Yes Lack of Transportation: No Lack of Food: Never True Current Housing: I Have Housing Concerned About Future Housing: No Difficulty Paying Gas/Electric Bills: No Difficulty Paying for Meds: No Currently Unemployed: No Education: Bachelor's Degree Difficulty w/ Childcare or Family Care: No Living arrangements: with family Occupation/Education: occupation Gender identity (if verbalized by the patient): Male Spiritual care concerns: No Agree to blood products: Yes Anes - Eval Final PreProcedure Day of Procedure 09/06/23 08:43 Patient weight: normal Heart: regular rate and rhythm Lungs: clear to auscultation Airway: Mallampati scale class III Neurological: alert and oriented Last oral intake: >/= 8 hours ASA classification: III Emergent: no Anesthetic plan: proceed Anesthesia type and monitoring: general GIVS and standard monitoring Results Review: All pre-operative results and documents have been reviewed as part of the pre-operative evaluation. Informed Consent: The patient's anesthetic plan and its attendant risks and benefits were discussed with the patient/family/POA. Questions were solicited and answers provided to the satisfaction of the patient/family/POA.
--- NOTE | 2023-09-06 09:09 | PM.IMHP ---
H&P: HPI History of Present Illness Date/Time: 09/06/23 09:09 Chief Complaint: screening for colorectal cancer, family history of colon cancer Narrative: this is a 63-year-old man who presents for colonoscopy. His last colonoscopy was 5 years ago. He has had anemia related to a history of lymphoma but denies any hematochezia or melena. He has a family history of colon cancer in his father. Review of Systems Review of Systems: All systems reviewed & are unremarkable except as noted in HPI and below Constitutional: Constitutional: Denies chills, Denies fever(s), Denies headache(s) and Denies weight loss Eyes: Eyes: Denies change in vision ENT: Denies dizziness, Denies headache(s), Denies neck mass and Denies throat swelling Cardiovascular: Cardiovascular: Denies chest pain, Denies lightheadedness and Denies dyspnea Respiratory: Respiratory: Denies cough, Denies dyspnea and Denies wheezing Gastrointestinal: Gastrointestinal: Denies abdominal pain, Denies change in bowel habits, Denies nausea and Denies vomiting Genitourinary: Genitourinary: Denies hematuria and Denies dysuria Musculoskeletal: Musculoskeletal: Reports as per HPI Integumentary/Breasts: Skin/Breast: Reports as per HPI Neurologic: Denies dizziness and Denies headache(s) Allergic/Immunologic: Allergic/Immunologic: Denies throat swelling and Denies wheezing PMFSH Past Medical History Medical History DVT (deep venous thrombosis) (12/2017) Hx of acute myocardial infarction (2008) Pulmonary embolism (12/2017) Surgical History Surgical History History of Rashawn fundoplication (2004) Hx of prostate biopsy (2016) Hx of splenectomy (2004) Incidental during Rashawn Family History Family History Father Acute myocardial infarction Colon cancer Malignant neoplasm of prostate Carcinoma of colon Colon polyp Heart disease Hypertension Social History Social History (Updated 05/25/23 @ 07:56 by Olivia Mills CMA) Smoking status: Never smoker Second hand tobacco smoke exposure: No Alcohol intake: current Drinks per week: 4 Alcohol use details: WINE Substance use: never Substance use type: does not use Do You Feel Safe in your Home?: Yes Lack of Transportation: No Lack of Food: Never True Current Housing: I Have Housing Concerned About Future Housing: No Difficulty Paying Gas/Electric Bills: No Difficulty Paying for Meds: No Currently Unemployed: No Education: Bachelor's Degree Difficulty w/ Childcare or Family Care: No Living arrangements: with family Occupation/Education: occupation Gender identity (if verbalized by the patient): Male Spiritual care concerns: No Agree to blood products: Yes Meds Home Medications and Allergies Home Medications Medication Instructions Recorded Confirmed Type evolocumab 140 mg/mL subcutaneous 140 mg subcut 2XW 11/17/20 08/25/23 History pen injector (Anthony Rhoades) apixaban 2.5 mg tablet (Eliquis) 2.5 mg PO BID 10/08/21 09/06/23 History lisinopril 5 mg tablet 10 mg PO DAILY 10/08/21 08/25/23 History tadalafil 5 mg tablet 5 mg PO DAILY 10/08/21 08/25/23 History escitalopram oxalate 20 mg tablet 20 mg PO DAILY #90 tabs 05/25/23 08/25/23 Rx terbinafine HCl 250 mg tablet 250 mg PO DAILY #90 tabs 05/25/23 08/25/23 Rx ferrous sulfate 324 mg (65 mg 324 mg PO BID 08/25/23 08/25/23 History iron) tablet,delayed release Allergies Allergy/AdvReac Type Severity Reaction Status Date / Time bupropion Allergy Intermediate Tinnitus Verified 09/06/23 07:37 vortioxetine Allergy Intermediate Other Verified 09/06/23 07:37 [From Trintellix] tamsulosin [From Flomax] Allergy Unknown allergies Verified 09/06/23 07:37 Vital Signs Vital Signs - 24 hr 09/06/23 07:40 Temperature 36.1 C L Pulse Rate
[2023-09-06 09:47] VITALS: BP 95/63; PULSE 63; RESP 19; O2SAT 95
[2023-09-06 09:57] VITALS: BP 99/69; PULSE 60; RESP 16; O2SAT 100
[2023-09-06 10:07] VITALS: BP 130/86; PULSE 55; RESP 18; O2SAT 100
== END 2023-09-06 10:16 | disposition home or self-care (01) ==
PROVIDERS: PCP Family Medicine Adolescent Medicine; Visit Provider Surgery
PROC: 0DJD8ZZ Inspection of Lower Intestinal Tract, Via Natural or Artificial Opening Endoscopic (ICD-10-PCS; CPT 45378; principal; 2023-09-06 09:00)
DX: Z12.11 Encounter for screening for malignant neoplasm of colon (principal); Z80.0 Family history of malignant neoplasm of digestive organs; K57.30 Diverticulosis of large intestine without perforation or abscess without bleeding; Z85.72 Personal history of non-Hodgkin lymphomas; Z86.718 Personal history of other venous thrombosis and embolism; Z86.711 Personal history of pulmonary embolism
CPT/HCPCS: 45378; J2704; J7120

== ENCOUNTER 2023-10-11 08:11 | Outpatient (CLI) | payer OTHER, SELFPAY ==
--- NOTE | ~2023-10-11 | CT_ITS ---
EXAMINATION: CT chest abdomen pelvis w con DATE: 10/11/2023 08:54 INDICATION: Small B-cell lymphoma. TECHNIQUE: Computed tomography (CT) of the chest, abdomen, and pelvis was performed with 100 mL Omnip aque 350 intravenous contrast. Automated exposure control and iterative reconstruction technique were employed. The dose-length product was 1124.43 mGy-cm. COMPARISON: CT 03/31/2023 FINDINGS: CHEST CT: The lungs demonstrate mild atelectasis. No pleural effusion. Cardiomegaly is noted. There are coronar y artery calcifications. There are no pathologically enlarged lymph nodes. There is a left internal j ugular port with tip at superior cavoatrial junction. There is a small sliding hiatal hernia. There a re old healed right rib fractures. There is mild thoracic spondylosis. ABDOMEN/PELVIS CT: There are cysts in the liver measuring up to 11 mm. The gallbladder is normal. There are changes of s plenectomy. There is an accessory spleen in left upper quadrant. The adrenal glands and pancreas are normal. There are cysts in the kidneys measuring up to 11.2 cm on the left. There is an umbilical her garcia containing fat. There are no dilated loops of bowel. The appendix is normal. There are no patholo gically enlarged lymph nodes. There is no free intraperitoneal fluid. There is severe lumbar spondylo sis. There is a benign bone island in L2 vertebral body. IMPRESSION: 1. No evidence of lymphoma. Reviewed, dictated and finalized at location A. IMPRESSION: 1. No evidence of lymphoma.
[2023-10-11 08:43] LABS: Estimated Glomerular Filt Rate > 60
== END 2023-10-11 08:12 | disposition home or self-care (01) ==
LOC: ANHIMG 08:12
PROVIDERS: PCP Family Medicine Adolescent Medicine; Visit Provider Internal Medicine Hematology & Oncology
DX: C83.00 Small cell B-cell lymphoma, unspecified site (principal)
CPT/HCPCS: 71260; 74177; Q9967

== ENCOUNTER 2024-03-27 08:43 | Outpatient (CLI) | payer OTHER, SELFPAY ==
--- NOTE | ~2024-03-27 | CT_ITS ---
Clinical Indication: Mantle cell lymphoma CT Scan of the Chest, Abdomen, and Pelvis without Contrast: Technique: Contiguous sections were acquired throughout the chest, abdomen, and pelvis without IV con trast administration. Dose reduction technique was used on this scan by utilizing automated exposure control and iterative reconstruction technique. The dose-length product (DLP) was 887.21 mGy-cm. Comparison: 10/11/2023 Findings: There is no evidence of any significant mediastinal, hilar or axillary lymphadenopathy. The mediastin al soft tissues appear normal, aside from extensive coronary artery calcifications. There is no evidence of pleural or pericardial effusion. The lungs are clear. No pulmonary nodules or infiltrates are noted. Stable small hepatic cyst. Multiple bilateral renal cysts are unchanged. The spleen, pancreas, gallbl adder, and adrenal glands are within normal limits. No evidence of aortic aneurysm. No lymphadenopa thy. No bowel obstruction or bowel wall thickening. There is no evidence to suggest acute appendicitis. Fa t-containing umbilical hernia unchanged. Urinary bladder is unremarkable. No pelvic mass seen. No ascites. Impression: No pathologic lymphadenopathy seen. Numerous large bilateral renal cysts, unchanged. Stable fat-containing umbilical hernia. Reviewed, dictated and finalized at [facility]. 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 Numerous large bilateral renal cysts, unchanged. Stable fat-containing umbilical hernia.
== END 2024-03-27 08:44 | disposition home or self-care (01) ==
PROVIDERS: PCP Family Medicine Adolescent Medicine; Visit Provider Internal Medicine Hematology & Oncology
DX: N28.1 Cyst of kidney, acquired (principal); K42.9 Umbilical hernia without obstruction or gangrene; C83.10 Mantle cell lymphoma, unspecified site
CPT/HCPCS: 71250; 74176

== ENCOUNTER 2024-03-30 09:34 | Emergency (ER) | payer OTHER, SELFPAY ==
[2024-03-30 09:58] VITALS: BP 114/77; PULSE 95; RESP 18; TEMP 36.5; O2SAT 97
--- NOTE | 2024-03-30 10:03 | ED_ITS ---
HPI - URI/Sore Throat General Chief Complaint: Upper Respiratory Infection Stated Complaint: Cough/Sore Throat Time Seen by Provider: 03/30/24 10:15 Source: patient and RN notes reviewed Mode of arrival: ambulatory Limitations: no limitations History of Present Illness HPI Narrative: 63-year-old male presents with concern for one-month history of nasal congestion, cough, postnasal drainage. Reports cough is productive. Reports he recently got a sore throat. He denies fever, body aches, chills, sweats. Reports he has been taking Mucinex. MD elicited complaint: cough and sore throat Related Data Home Medications ?Medication ?Instructions ?Recorded ?Confirmed ?Last Taken ?Type evolocumab 140 mg/mL subcutaneous 140 mg subcut .COMPLEX 11/17/20 02/08/24 Unknown History pen injector (Repatha SureClick) apixaban 2.5 mg tablet (Eliquis) 2.5 mg PO BID 10/08/21 02/08/24 09/03/23 History lisinopril 5 mg tablet 10 mg PO DAILY 10/08/21 02/08/24 Unknown History tadalafil 5 mg tablet 5 mg PO DAILY 10/08/21 02/08/24 Unknown History Allergies Allergy/AdvReac Type Severity Reaction Status Date / Time bupropion Allergy Intermediate Tinnitus Verified 03/30/24 09:56 vortioxetine (From Allergy Intermediate Other Verified 03/30/24 09:56 Trintellix) tamsulosin (From Flomax) Allergy Unknown allergies Verified 03/30/24 09:56 Review of Systems Review of Systems: CONSTITUTIONAL: Denies malaise, chills, sweats, or fever. EYES: Denies visual changes, redness, or discharge. ENT: Reports rhinorrhea, congestion, and sore throat. CARDIOVASCULAR: Denies chest pain, palpitations, or edema. RESPIRATORY: Reports productive cough. Denies dyspnea. GASTROINTESTINAL: Denies abdominal pain, nausea, vomiting, diarrhea SKIN: Denies rash or itching. MUSCULOSKELETAL: Denies myalgia. NEUROLOGIC: Denies headache. All systems reviewed & are unremarkable except as noted in HPI and below PMFSH Past Medical History Medical History DVT (deep venous thrombosis) (12/2017) Hx of acute myocardial infarction (2008) Pulmonary embolism (12/2017) Surgical History Surgical History History of Rashawn fundoplication (2004) Hx of prostate biopsy (2016) Hx of splenectomy (2004) Incidental during Rashawn Family History Family History Father Acute myocardial infarction Colon cancer Malignant neoplasm of prostate Carcinoma of colon Colon polyp Heart disease Hypertension Social History Social History (Updated 05/25/23 @ 07:56 by Olivia Mills [facility]) Smoking status: Never smoker Second hand tobacco smoke exposure: No Alcohol intake: current Drinks per week: 4 Alcohol use details: WINE Substance use: never Substance use type: does not use Do You Feel Safe in your Home?: Yes Lack of Transportation: No Lack of Food: Never True Current Housing: I Have Housing Concerned About Future Housing: No Difficulty Paying Gas/Electric Bills: No Difficulty Paying for Meds: No Currently Unemployed: No Education: Bachelor's Degree Difficulty w/ Childcare or Family Care: No Living arrangements: with family Occupation/Education: occupation Gender identity (if verbalized by the patient): Male Spiritual care concerns: No Agree to blood products: Yes Comments At time of signature, agree with nursing past medical, surgical, social and family history. There is no relevant family history pertinent to the presenting complaint Exam Narrative: GENERAL: Well-appearing, well-nourished, and in no acute distress. HEAD: Normocephalic EYES: PERRLA, conjunctivae clear ENT: Nares clear, turbinates edematous and erythematous. Mucous membranes moist. TM pearly bernal with sharp light reflex bilaterally; no tragal tenderness. Oropharynx not erythematous without lesions. Tonsils not enlarged and without exudate, no drooling, no hoarseness, no trismus, uvula midline. NECK: Supple. No lymphadenopathy CHEST: Clear to auscultation, breath sounds equal. No wheezing, rhonchi, rales, or stridor. No respiratory distress, speaks in full sentences. HEART: Regular rate and rhythm. No murmur heard. SKIN: Warm, dry, no rash. NEURO: Alert and oriented x3. PSYCH: Normal mood and affect Course Course Emergency Course: Patient is aware of diagnosis, understands and agrees to treatment plan. Anticipatory guidance given. Patient agrees to follow-up as directed and is aware of reasons to seek care at the emergency department. Portions of this record may have been created with voice recognition software Level of Care: Express Care Visit Vital Signs Vital signs: Vital Signs Temperature 97.7 F 03/30/24 09:58 Pulse Rate 95 03/30/24 09:58 Respiratory Rate 18 03/30/24 09:58 Blood Pressure 114/77 03/30/24 09:58 Pulse Oximetry 97 03/30/24 09:58 Oxygen Delivery Room Air 03/30/24 09:58 Temperature 97.7 F 03/30/24 09:58 Pulse Rate 95 03/30/24 09:58 Respiratory Rate 18 03/30/24 09:58 Blood Pressure 114/77 03/30/24 09:58 Pulse Oximetry 97 03/30/24 09:58 Oxygen Delivery Room Air 03/30/24 09:58 Reviewed. MDM - URI/Sore Throat MDM Narrative Medical decision making narrative: Differential diagnosis considered: Arceo virus, strep pharyngitis, allergic rhinitis, upper respiratory tract infection, sinusitis, rhinosinusitis, nasopharyngitis. viral pharyngitis, otitis media, otitis externa, pneumonia, bronchitis, viral cough syndrome, viral syndrome, and influenza. Exam findings show no acute concerns or changes; patient is non-toxic appearing and is in no distress. Patient is appropriate for outpatient treatment and follow-up. Lab Data Attestation: I reviewed the patient's lab results. Critical Care Time Critical Care Time Critical Care Time: No Discharge Plan Discharge Clinical Impression: Lower respiratory tract infection Patient Disposition: Home, Self-Care Condition: Stable Instructions: Antibiotic Form, Acute Cough (ED) Additional Instructions: Take medication as prescribed Recommend antihistamine such as Benadryl at night time and Zyrtec or Caro during the day Also, recommend symptomatic treatment includes: rest, fluids, and increase humidity of the air at home. Recommend Acetaminophen as directed on the bottle to reduce fever, pain, headache. Avoid smoking/second-hand smoke. Please schedule a follow-up visit with your personal physician for further evaluation and treatment within 3-5days. If your symptoms persist, change or worsen significantly before you can contact your personal physician then please, without delay, go to the emergency department for further evaluation. Patient Language: Honduran Prescriptions: New doxycycline monohydrate 100 mg tablet 100 mg PO BID 7 Days Qty: 14 0RF methylprednisolone [Medrol (Nader)] 4 mg tablets,dose pack See Rx Instructions .ROUTE .COMPLEX Qty: 21 0RF Rx Instructions: orally per package directions No Action escitalopram oxalate 20 mg tablet 20 mg PO DAILY Qty: 90 3RF tadalafil 5 mg tablet 5 mg PO DAILY Eliquis 2.5 mg tablet 2.5 mg PO BID Repatha SureClick 140 mg/mL pen injector 140 mg SUBCUT .COMPLEX Rx Instructions: 140 mg subcutaneously twice a month; lisinopril 5 mg tablet 10 mg PO DAILY Follow-up/Referrals: Edwin Morillo MD [Primary Care Provider] - Time of Disposition: 10:10
[2024-03-30 10:09] LABS: EDSTREPNEGPOS1 Negative (Negative)
== END 2024-03-30 10:15 | disposition home or self-care (01) ==
PROVIDERS: Emergency Provider Nurse Practitioner; PCP Family Medicine Adolescent Medicine
DX: J22 Unspecified acute lower respiratory infection (principal); I25.2 Old myocardial infarction; Z86.718 Personal history of other venous thrombosis and embolism; Z86.711 Personal history of pulmonary embolism; Z79.01 Long term (current) use of anticoagulants
CPT/HCPCS: 87081; 87880; 99213; G0463

== ENCOUNTER 2024-09-17 13:47 | Outpatient (CLI) | payer OTHER, SELFPAY ==
--- NOTE | ~2024-09-17 | CT_ITS ---
EXAMINATION: CT chest abdomen pelvis w con DATE: 09/17/2024 14:27 INDICATION: Mantle cell lymphoma TECHNIQUE: Computed tomography (CT) of the chest, abdomen, and pelvis was performed with 100 mL Omnip aque-350 intravenous contrast. Automated exposure control and iterative reconstruction technique were employed. The dose-length product was 1637.00 mGy-cm. COMPARISON: 03/27/2024 FINDINGS: CHEST CT: Respiratory motion at the lung bases. Mild discoid atelectasis in the anterobasilar left lower lobe a nd in the right middle lobe. No suspicious pulmonary nodules, pneumonia, pulmonary edema or pleural e ffusion. Mild cardiomegaly. Atherosclerotic coronary artery calcification. No pericardial effusion. T horacic aorta is normal in caliber with no dissection. No pathologically enlarged thoracic lymphadeno huong. Left subclavian central venous port catheter with distal tip at the superior cavoatrial juncti on. Small sliding-type hiatal hernia. Mild thoracic dextrocurvature with mild spondylosis. Old healed right rib fractures. ABDOMEN/PELVIS CT: Postoperative change of prior splenectomy with mild stenosis and a few sutures underlying the left he midiaphragm. A couple small low-attenuation hepatic cysts the larger measuring 1.2 cm in segment 5 of the liver. There are a couple surgical clips in the fat anterior to the liver near the ligamentum te res. Gallbladder, pancreas and bilateral adrenal glands are normal. Multiple bilateral renal cysts th e largest measuring up to 12.6 cm the lower pole the left kidney. Bowels including the appendix are n ormal. Bladder is normal. No free intraperitoneal gas or fluid. No pathologically enlarged abdominal or pelvic lymphadenopathy. Small fat-containing umbilical hernia. Densely sclerotic bone island at L2 . Severe lumbar spondylosis. IMPRESSION: 1. No evident lymphoma or other malignancy or metastatic disease. 2. Small sliding-type hiatal hernia. 3. Small fat-containing umbilical hernia. Reviewed, dictated and finalized at location A.
--- OUTSIDE RECORDS SUMMARY | 2024-09-17 13:53 | XMS_ITS | Clinical Summary ---
Author Organization [facility] Address [address] [facility] [place] [address] Care Team Providers Care Discharge Rn Name Role Phone Edwin Morillo MD Primary Care Provider + Source Comments [facility],non-owned Affiliates and Associated Physician Practices is amultiple site organization consisting of ambulatory clinics and hospital sitesin [place], [place], [place] and [place]. This disclosure is being madepursuant to the Care Everywhere program and may not contain all information available regarding this patient. 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 Gender Identity Not on file Sexual Orientation Not on file Plan of Treatment Health Maintenance Due Date Last Done Comments COLOGUARD (AGES 45-75) - COL ON CA SCREENING 1959 COLON MONITORING 1959 COLONOSCOPY - COLON CA SCREENING 1959 CT COLONOGRAPHY - COLON CA SCREENING 1959 Colorectal Cancer Screening 1959 FIT - COLON CA SCREENING 1959 FLEX SIG - COLON CA SCREENING 1959 LIPID TESTING 1959 HIV SCREENING 07/26/1974 HEPATITIS C SCREENING 07/22/1977 DTAP/TDAP/TD VACCINES (1 - Tdap) 07/26/1978 PNEUMOCOCCAL VACCINE 50+ (1 of 1 - PCV) 07/26/2009 ZOSTER VACCINE (1 of 2) 07/26/2009 COVID-19 VACCINE ( - 2023-2 5 season) 2023 DEPRESSION SCREENING 02/29/2024 INFLUENZA VACCINE (#1) 2024 Respiratory Syncytial Virus (RSV) Vaccine Pt: or over 60 yrs (1 - 1-dose 75+ series) 07/26/2034 HEPATITIS B VACCINE Aged Out No longe r eligible based on patient's age to complete this topic HIB VACCINE Aged Out No longer eligi ble based on patient's age to complete this topic HPV VACCINE Aged Out No longer eligi ble based on patient's age to complete this topic MENINGOCOCCAL (Group B) VACC INE SHARED DECISION-MAKING Aged Out No longer eligibl e based on patient's age to complete this topic MENINGOCOCCAL GROUPS A/C/Y/W VACCINE Aged Out No longer eligible b ased on patient's age to complete this topic Insurance Care Teams Discharge Rn Relationship Specialty Start Date End Date Edwin Morillo MD [address] [place] [address] PCP - General 09/21/18
--- OUTSIDE RECORDS SUMMARY | 2024-09-17 13:53 | XMS_ITS | Encounter Summary ---
Author Organization [facility] Address [address] [facility] [address] [place] [address] Care Team Providers Care Rn New Grad Name Role Phone Edwin Morillo MD Primary Care Prov ider Edwin Morillo MD Primary Care Prov ider Encounter Details Date Type Department Care Team (Late st Contact Info) Description 04/30/2016 Orders Only [facility] ProviderCynthia MD [address] [place] [address] Social History Tobacco Use Types Packs/Day Years Used Date Smoking Tobacco: Never Alcohol Use Standard Drinks/Week Comments Yes 0 (1 standard drink = 0.6 oz pur e alcohol) Sex and Gender Information Value Date Recorded Sex Assigned at Not on file 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 Historical Provider [facility] Final Result documented in this encounter Visit Diagnoses Not on filedocumented in this encounter Care Teams Rn New Grad Relationship Specialty Start Date End Date Edwin Morillo MD [address] [place] [address] PCP - General 05/28/16 Edwin Morillo MD [address] [place] [address] PCP - General 12/18/13 05/27/16 documented as of this encounter
--- OUTSIDE RECORDS SUMMARY | 2024-09-17 13:53 | XMS_ITS | Referral Summary ---
Author Organization [facility] [address] Address [address] [place] [address] Care Team Providers Care English Composition Instructor Name Role Phone Edwin Morillo MD Primary Care Prov ider Allergies No known active allergies Medications tadalafil (CIALIS) 5 mg tablet take 1 tablet by oral route every day 0 0 12/06/2013 Active aspirin (ADULT LOW DOSE ASPIRIN) 81 mg tablet Take 1 tablet (81 mg total) by mouth daily. 02/01/2018 Active apixaban (ELIQUIS) 2.5 mg tablet Take 1 tablet (2.5 mg total) by mouth 2 (two) times a day Active evolocumab (Repatha SureClick) 140 mg/mL pen injector Inject 1 mL (140 mg total) under the skin every 14 (fourteen) days 2 mL 11 06/06/2024 Active lisinopriL (PRINIVIL,ZESTRI L) 10 mg tablet Take 1 tablet (10 mg total) by mouth daily 90 tablet 2 06/06/2024 Active Active Problems Problem Noted Date Diagnosed Date Mixed hyperlipidemia 11/23/2021 History of 2019 novel coronavirus disease (COVID -19) 02/08/2020 Chronic anticoagulation 08/03/2019 S/P coronary artery stent placement 02/01/2018 History of pulmonary embolism 01/23/2018 Coronary artery disease invo lving [place] coronary artery of [place] heart without angina pectoris 04/30/2016 Overview (07/23/2016): Coronary artery disease involving [place] coronary artery of [place] heart without angina pectoris Benign hypertension 04/30/2016 Overview (07/23/2016): HTN (hypertension), benign History of myocardial infarction 04/30/2016 Overview (07/23/2016): H/O acute myocardial infarction History of DVT (deep vein thrombosis) Resolved Problems Problem Noted Date Diagnosed Date Resolved Date Myocardiopathy 05/31/2022 05/03/2024 Dyslipidemia 02/01/2018 11/23/2021 Shortness of breath 01/23/2018 05/13/19 Pulmonary embolus 01/23/2018 05/03/2024 Elevated troponin 01/23/2018 05/13/2023 History of placement of sten t for coronary artery disease 04/30/2016 11/23/2021 Overview (07/23/2016): S/P coronary artery stent placement Noncompliance with treatment 04/30/2016 05/13/2023 Overview (07/23/2016): Noncompliance Social History Tobacco Use Types Packs/Day Years Used Date Smoking Tobacco: Never Cigarettes Smokeless Tobacco: Never Tobacco Cessation:Counseling Given: Not Answered Alcohol Use Standard Drinks/Week Comments Yes 0 (1 standard drink = 0.6 oz pur e alcohol) Sex and Gender Information Value Date Recorded Sex Assigned at Not on file 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 Gender Identity Male 05/23/2019 11:01 AM CDT Sexual Orientation Straight 05/23/2019 11 :01 AM CDT Last Filed Vital Signs Vital Sign Reading Time Taken Comments Blood Pressure 110/72 05/03/2024 8:57 AM EMANATIONS ANALYSIS TECHNICIAN Pulse 84 05/03/2024 8:57 AM EMANATIONS ANALYSIS TECHNICIAN Temperature 36.6 C (97.9 F) 01/24/2018 7:40 AM EMANATIONS ANALYSIS TECHNICIAN Respiratory Rate 18 02/08/2020 7:54 AM EMANATIONS ANALYSIS TECHNICIAN Oxygen Saturation 97% 05/03/2024 8:57 AM EMANATIONS ANALYSIS TECHNICIAN Inhaled Oxygen Concentration - - Weight 95.3 kg (210 lb) 05/03/2024 8:57 AM EMANATIONS ANALYSIS TECHNICIAN Height 180.3 cm (5' 11) 05/03/2024 8:57 AM EMANATIONS ANALYSIS TECHNICIAN Body Mass Index 29.29 05/03/2024 8:57 AM EMANATIONS ANALYSIS TECHNICIAN Plan of Treatment Not on file Insurance [facility] H[facility]/PPO Address: [address] [address] [place] [address] [facility] HMO/PPO Address: [facility] [address] [place] [address] Advance Directives For more information, please contact: [phone] * Full Code (Latest Code Status on File) Date Activated Date Inactivated Comments 01/22/2018 10:12 PM 01/24/2018 5:07 PM Care Teams English Composition Instructor Relationship Specialty Start Date End Date Edwin Morillo MD [address] [place] [address] PCP - General 05/28/16
--- OUTSIDE RECORDS SUMMARY | 2024-09-17 13:53 | XMS_ITS | Encounter Summary ---
Author Organization [facility] Address [address] [facility] [address] [place] [address] Care Team Providers Care Escrow Processor Name Role Phone Edwin Morillo MD Primary Care Prov ider Edwin Morillo MD Primary Care Prov ider Encounter Details Date Type Department Care Team (Late st Contact Info) Description 05/17/2016 Orders Only [facility] ProviderCynthia MD [address] [place] [address] Social History Tobacco Use Types Packs/Day Years Used Date Smoking Tobacco: Never Alcohol Use Standard Drinks/Week Comments Yes 0 (1 standard drink = 0.6 oz pur e alcohol) Sex and Gender Information Value Date Recorded Sex Assigned at Not on file 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 Historical Provider [facility] Final Result documented in this encounter Visit Diagnoses Not on filedocumented in this encounter Care Teams Escrow Processor Relationship Specialty Start Date End Date Edwin Morillo MD [address] [place] [address] PCP - General 05/28/16 Edwin Morillo MD [address] [place] [address] PCP - General 12/18/13 05/27/16 documented as of this encounter
--- OUTSIDE RECORDS SUMMARY | 2024-09-17 13:53 | XMS_ITS | Encounter Summary ---
Author Organization [facility] Address [address] [place] [address] Care Team Providers Care Global Marketing Coordinator Name Role Phone Edwin Morillo MD Primary Care Provider + Encounter Details Date Type Department Care Team (Late st Contact Info) Description 09/21/2018 Lab Requisition [facility] DermPath Lab [address] [facility], [place] [id number] Mario Blevins MD [address] [place] [address] Social History Tobacco Use Types Packs/Day Years Used Date Smoking Tobacco: Never Assessed Sex and Gender Information Value Date Recorded Sex Assigned at Not on file 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 Gender Identity Not on file Sexual Orientation Not on file documented as of this encounter Plan of Treatment Not on file documented as of this encounter Procedures Procedure Name Priority Date/Time Associated Diagnosis Comments DERMATOPATHOLOGY Routine 09/20/2018 12:0 0 AM CDT documented in this encounter Results * DERMATOPATHOLOGY (09/20/2018 12:00 AM CDT) Case Report Dermatopathology Report Case: [id number] Authorizing Provider: Mario Blevins MD Collected: 09/20/2018 12:00 AM Pathologist: Ruth Baez MD Received: 09/21/2018 12:04 PM Specimen: Skin, right upper chest 9 12:39 PM CDT DERMATOPATHOLOGY LABORATORY Final Diagnosis Specimen A. SKIN, right upper chest: JUNCTIONAL MELANOCYTIC NEVUS, IRRITATED (D22.5) NOT PRESENT AT SAMPLED MARGIN 9 12:39 PM CDT DERMATOPATHOLOGY LABORATORY at 1239 CDT Clinical History FLat SK vs lentigo. R/O atypia. Check margin 12:39 PM CDT DERMATOPATHOLOGY LABORATORY Gross Description Specimen A: Received is one formalin filled container labeled with the patient's name and designated right upper chest. The specimen consists of a shave biopsy measuring 6x4x1 mm, inked. Jar 0. 12:39 PM CDT DERMATOPATHOLOGY LABORATORY Microscopic Description Specimen A. SKIN, right upper chest: There are nests of melanocytes at the dermal-epidermal junction. There is melanin pigment in the stratum corneum. This lesion is not present at the sampled margin of the specimen. 12:39 PM CDT DERMATOPATHOLOGY LABORATORY Disclaimer An external and internal positive and negative controls are appropriate for the histochemical, immunohistochemical and immunofluorescence stain(s) in this case (if any), except where stated explicitly. The performance characteristics of the stain(s) cited in this report were developed and its performance characteristic determined by the Dermatopathology Laboratory at [facility], directed by Dr. Elizabeth Parish. These tests need not be, and therefore are not, approved by the [place] Food and Drug Administration. The tests are used for clinical purposes. Billing Codes Specimen Charges Stain Charges 32236 1 12:39 PM CDT DERMATOPATHOLOGY LABORATORY Embedded Images 12:39 PM CDT DERMATOPATHOLOGY LABORATORY Pathology/Cytolog y TISSUE SPECIMEN FROM SKIN / Unknown 09/20/2018 09/21/2018 12:04 PM CDT Mario Blevins MD LAB - PATHOLOGY/CYTOLOGY ORDERA BLES Final Result DERMATOPATHOLOGY LABORATORY [facility] - Department of Dermatology [address] [facility], [address]th [place] [address], [facility] [phone] documented in this encounter Visit Diagnoses Not on filedocumented in this encounter Care Teams Global Marketing Coordinator Relationship Specialty Start Date End Date Edwin Morillo MD [address] [address] PCP - General 7/25/19 documented as of this encounter
--- OUTSIDE RECORDS SUMMARY | 2024-09-17 13:53 | XMS_ITS | Encounter Summary ---
Author Organization [facility] [employer] [facility] Address [address] [place] [address] Care Team Providers Care Agricultural Equipment Salesperson Name Role Phone Edwin Morillo MD Primary Care Provider +1- [phone] Encounter Details Date Type Department Care Team (Late st Contact Info) Description 09/17/2024 Orders Only [facility] Oncology and Hematology [facility] [address] [place] [address] Trung Truong MD [email or web address] [address] [place] [address] Need for hepatitis B screening test Social History Tobacco Use Types Packs/Day Years Used Date Smoking Tobacco: Never Smokeless Tobacco: Never Alcohol Use Standard Drinks/Week Comments Not Currently 0 (1 standard drink = 0.6 oz pur e alcohol) Sex and Gender Information Value Date Recorded Sex Assigned at Not on file Legal Sex Male 9:31 AM CDT Gender Identity Not on file Sexual Orientation Not on file documented as of this encounter Plan of Treatment Upcoming Encounters Date Type Department Care Team (Late st Contact Info) Description 09/25/2024 8:30 AM CDT Office Visit [facility] Oncology and Hematology [address] [place] [address] Trung Truong MD [email or web address] [place] [address] documented as of this encounter Visit Diagnoses Diagnosis Need for hepatitis B screening test documented in this encounter Care Teams Agricultural Equipment Salesperson Relationship Specialty Start Date End Date Edwin Morillo MD PCP - General Family Practice 12/18/20 documented as of this encounter
--- OUTSIDE RECORDS SUMMARY | 2024-09-17 13:53 | XMS_ITS | Clinical Summary ---
Author Organization [facility] Mariaa Perales Address [address] [place] [address] Care Team Providers Care Solar Energy System Installer Helper Name Role Phone Edwin Morillo MD Primary Care Provider +1- [phone] Allergies No known active allergies Medications rosuvastatin (CRESTOR) 40 mg tablet Take 40 mg by mouth daily. Active lisinopriL (PRINIVIL) 5 mg tablet Take 5 mg by mouth daily. Active escitalopram oxalate (LEXAPRO) 20 mg tablet Take 20 mg by mouth daily. Active cephALEXin (KEFLEX) 500 mg capsule TAKE 1 CAPSULE BY MOUTH 4 TIMES A DAY FOR 5 DAYS 04/25/19 22 Active acyclovir (ZOVIRAX) 400 mg tabletIndicatio ns:Small B-cell lymphoma, unspecified body region (CMS/HCC) Take 1 Tablet (400 mg) by mouth 2 times daily. 60 Tablet 3 10/13/19 23 Active sulfamethoxazol e-trimethoprim (BACTRIM DS) 800-160 mg tablet Take 1 tablet by mouth every Tuesday, Tuesday, and Tuesday. 12 Tablet 3 10/13/19 23 Active apixaban (Eliquis) 2.5 mg tabletIndicatio ns:Recurrent pulmonary embolism (CMS/HCC) Take 1 Tablet (2.5 mg) by mouth 2 times daily. 180 Tablet 2 12/10/19 23 Active ondansetron (ZOFRAN ODT) 8 mg Tablet, Rapid DissolveIndicat ions:Small B-cell lymphoma, unspecified body region (CMS/HCC) Dissolve 1 tablet on top of tongue then swallow with saliva every 8 hours as needed for nausea or vomiting 30 Tablet 05/12/19 24 Active lidocaine-prilo emile (EMLA) 2.5-2.5 % CreamIndication s:Small B-cell lymphoma, unspecified body region (CMS/HCC) Apply to affected area see administration instructions. 30 Gram 1 10/05/19 24 Active Active Problems Problem Noted Date Diagnosed Date Leukemia, lymphocytic, chronic 10/26/2022 Tinnitus 12/18/2020 Recurrent pulmonary embolism 12/18/2020 Encounters Date Type Department Care Team Description 09/17/2024 Orders Only [facility] Oncology and Hematology - [address] [place] [address] Trung Truong MD Need for hepatitis B screening test 09/12/2024 External Device Data STL ABSTRACTION Provider, Abstract 09/12/2024 External Device Data STL ABSTRACTION Provider, Abstract 09/12/2024 External Device Data STL ABSTRACTION Provider, Abstract 09/11/2024 External Device Data STL ABSTRACTION Provider, Abstract 09/10/2024 Orders Only [facility] Oncology and Hematology - [place] [address] [place] [address] Trung Truong MD Mantle cell lymphoma, unspecified body region (CMS/HCC) 09/03/2024 Orders Only [facility] Oncology and Hematology - [place] [address] [place] [address] Trung Truong MD Need for hepatitis B screening test 08/27/2024 Orders Only [facility] Oncology and Hematology - [address] [place] [address] Trung Truong MD Mantle cell lymphoma, unspecified body region (CMS/HCC) 08/21/2024 External Device Data STL ABSTRACTION Provider, Abstract 08/20/2024 Orders Only [facility] Oncology and Hematology - [place] [address] [place] [address] Trung Truong MD Need for hepatitis B screening test 08/14/2024 External Device Data STL ABSTRACTION Provider, Abstract 08/13/2024 Orders Only [facility] Oncology and Hematology - [address] Trung Truong MD Mantle cell lymphoma, unspecified body region (CMS/HCC) 08/06/2024 [facility] Oncology and Hematology - [place] [address] Trung Truong MD Need for hepatitis B screening test 08/01/2024 Orders Only [facility] Oncology and Hematology - [place] [address] [place] [address] Trung Truong MD 07/31/2024 9:00 AM CDT Office Visit [facility] Oncology and Hematology - [address] [place] [phone] Trung Truong MD Mantle cell lymphoma, unspecified body region (CMS/HCC) (Primary Dx) 07/31/2024 Orders Only [facility] Oncology and Hematology - [address] [place] [address] Trung Truong MD 07/30/2024 Orders [facility] Oncology and Hematology - [address] [place] [id number] Trung Truong MD Mantle cell lymphoma, unspecified body region (CMS/HCC) 07/24/2024 External Device Data STL ABSTRACTION Provider, Abstract 07/23/2024 Orders Only [facility] Oncology and Hematology - [address] [place] [address] Trung Truong MD Need for hepatitis B screening test 07/19/2024 External Device Data STL ABSTRACTION Provider, Abstract 07/18/2024 External Device Data STL ABSTRACTION Provider, Abstract 07/16/2024 [facility] Oncology and Hematology - [address] [place] [address] Trung Truong MD Mantle cell lymphoma, unspecified body region (CMS/HCC) 07/09/2024 Orders Only [facility] Oncology and Hematology - [address] [place] [address] Trung Truong MD Need for hepatitis B screening test 07/02/2024 Orders Only [facility] Oncology and Hematology - [address] [place] [address] Trung Truong MD Mantle cell lymphoma, unspecified body region (CMS/HCC) 06/26/2024 External Device Data STL ABSTRACTION Provider, Abstract 06/25/2024 Orders Only [facility] Oncology and Hematology - [place] [address] [place] [address] Trung Truong MD Need for hepatitis B screening test 06/18/2024 Orders Only [facility] Oncology and Hematology - [place] [facility] [address] [place] [address] Trung Truong MD Mantle cell lymphoma, unspecified body region (CMS/HCC) from Last 3 Months Family History Medical History Relation Name Comments Cancer Father Heart Disease Father Cancer Mother Relation Name Status Comments Brother Alive Father Mother Alive Sister Alive Social History Tobacco Use Types Packs/Day Years Used Date Smoking Tobacco: Never Smokeless Tobacco: Never Tobacco Cessation:Counseling Given: Not Answered Alcohol Use Standard Drinks/Week Comments Not Currently 0 (1 standard drink = 0.6 oz pur e alcohol) Sex and Gender Information Value Date Recorded Sex Assigned at Not on file Legal Sex Male 9:31 AM CDT Gender Identity Not on file Sexual Orientation Not on file Last Filed Vital Signs Vital Sign Reading Time Taken Comments Blood Pressure 107/73 07/31/2024 8:59 AM CDT Pulse 92 07/31/2024 8:59 AM CDT Temperature 36.5 C (97.7 F) 07/31/2024 8:59 AM CDT Respiratory Rate 15 07/31/2024 8:59 AM CDT Oxygen Saturation 95% 07/31/2024 8:59 AM CDT Inhaled Oxygen Concentration - - Weight 88.6 kg (195 lb 6.4 oz) 07/31/2024 8:59 A M CDT Height 180.3 cm (5' 11) 09/15/2022 8:41 AM CDT Body Mass Index 27.25 09/15/2022 8:41 AM CDT Plan of Treatment Upcoming Encounters Date Type Department Care Team (Late st Contact Info) Description 09/25/2024 8:30 AM CDT Office Visit [facility] Oncology and Hematology - [place] [address] [facility] [address] [place] [address] Trung Truong MD [address] [facility] [address] [place] [address] Health Maintenance Due Date Last Done Comments Pre-Diabetes and Diabetes Screening 1960 DTAP/TDAP/TD VACCINES (1 - Tdap) 07/26/1978 PNEUMOCOCCAL VACCINE 50+ YEARS (1 of 2 - PCV) 07/26/18 79 ZOSTER VACCINE (1 of 2) 07/26/1978 COLORECTAL SCREENING 07/26/2004 Colorectal Cancer Screening 07/26/2004 FIT-DNA Q 3 years 07/26/2004 FIT/FOBT Q 1 year 07/26/2004 Flex Sig/CT Colonography Q 5 years 07/26/2004 INFLUENZA VACCINE (#1) 2024 12/29/2022 RSV VACCINE (60+ or ) (1 - 1-dose 75+ series) 07/26/2034 Procedures Procedure Name Priority Date/Time Associated Diagnosis Comments CBC WITH DIFFERENTIAL Routine 07/31/2024 4:29 PM CDT BASIC METABOLIC PANEL Routine 07/31/2024 7:54 AM CDT from Last 3 Months Results * CBC WITH DIFFERENTIAL (07/31/2024 4:29 PM CDT) Blood Trung Truong MD HEMATOLOGY ORDERABLES Final Res ult * BASIC METABOLIC PANEL (07/31/2024 7:54 AM CDT) Blood Trung Truong MD CHEMISTRY ORDERABLES Final Resu lt from Last 3 Months Insurance Care Teams Solar Energy System Installer Helper Relationship Specialty Start Date End Date Edwin Morillo MD PCP - General Family Practice 12/18/20
--- OUTSIDE RECORDS SUMMARY | 2024-09-17 13:53 | XMS_ITS | Clinical Summary ---
Author Organization [facility] Emmy alberto Address [address] [place] [address] Phone Care Team Providers Care Retirement Manager Name Role Phone Edwin Mcneill MD Primary Care Provider +1- [phone] Allergies No known active allergies Medications Repatha SureClick 140 MG/ML solution auto-injector Inject 140 mg as directed every 14 (fourteen) days 11/17/2020 Active Xarelto 20 MG tablet Take 20 mg by mouth 1 (one) time each day 11/28/2020 Active rosuvastatin (CRESTOR) 40 MG tablet Take 40 mg by mouth 1 (one) time each day 10/29/2020 Active tadalafil (CIALIS) 5 MG tablet Take 5 mg by mouth 1 (one) time each day 12/06/2013 Active testosterone cypionate (DEPO-TESTOTERO NE) 200 MG/ML injection Inject 0.5 mL into the shoulder, thigh, or buttocks every 14 (fourteen) days 10/15/2020 Active escitalopram (LEXAPRO) 20 MG tablet Take 20 mg by mouth 1 (one) time each day 12/01/2020 Active Eliquis 2.5 MG tablet Take 1 tablet by mouth 2 (two) times a day 06/25/2021 Active lisinopril (PRINIVIL) 10 MG tablet Take 1 tablet (10 mg total) by mouth 1 (one) time each day 90 tablet 3 12/01/2021 Active Active Problems Problem Noted Date Diagnosed Date 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 Essential hypertension 12/12/2020 Social History Tobacco Use Types Packs/Day Years Used Date Smoking Tobacco: Never Assessed Sex and Gender Information Value Date Recorded Sex Assigned at Male 12/12/2020 10:06 AM MDT Legal Sex Male 12:40 PM MDT Gender Identity Male 12/12/2020 10:06 AM MDT Sexual Orientation Straight 12/12/2020 10 :06 AM MDT Last Filed Vital Signs Vital Sign Reading Time Taken Comments Blood Pressure 148/90 07/02/2021 9:17 AM CDT Pulse 96 07/02/2021 9:17 AM CDT Temperature 36.4 C (97.6 F) 12/12/2020 9:19 AM CDT Respiratory Rate - - Oxygen Saturation - - Inhaled Oxygen Concentration - - Weight 97.1 kg (214 lb) 07/02/2021 9:17 AM CDT Height 180.3 cm (5' 11) 07/02/2021 9:17 AM CDT Body Mass Index 29.85 07/02/2021 9:17 AM CDT Plan of Treatment Health Maintenance Due Date Last Done Comments Pneumococcal PPSV23/PCV13 65 + Years / Low and Medium Risk (1 of 2 - PCV) 07/26/2009 Influenza Vaccine (#1) 2024 Insurance [employer] Care Teams Retirement Manager Relationship Specialty Start Date End Date Edwin Mcneill MD [address] [address] PCP - General Family Medicine 12/12/20
--- OUTSIDE RECORDS SUMMARY | 2024-09-17 13:54 | XMS_ITS | Clinical Summary ---
Author Organization [facility] [address] Address [address] [place] [address] Care Team Providers Care National Park Ranger Name Role Phone Edwin Morillo MD Primary [...] embolism 01/23/2018 Coronary artery disease invo lving cabazon coronary artery of cabazon heart without angina pectoris 04/30/2016 Overview (07/23/2016): Coronary artery disease involving cabazon coronary artery of cabazon heart without angina pectoris Benign hypertension 04/30/2016 [...] with treatment 04/30/2016 05/13/2023 Overview (07/23/2016): Noncompliance Surgical History Surgery Date Site/Laterality Comments ANGIOPLASTY 01/13/2008 SPLENECTOMY, TOTAL 02/28/2005 ABDOMINAL SURGERY Medical History Medical History Date Comments Hypertension Coronary artery disease GERD (gastroesophageal reflux disease) Benign prostatic hyperplasia 02/28/2003 Depression 03/01/2004 Kidney stone 04/01/1994 Lymphoma (HCC) 05/29/2022 Family History Medical History Relation Name Comments Hypertension Brother Alonso Townsend Arthritis Father Matthew Townsend Cancer Father Matthew Townsend Coronary artery disease Father Matthew Townsend Cor onary artery disease; Heart attack Father Matthew Townsend Heart disease Father Matthew Townsend Heart failure Father Matthew Townsend Congestive he art failure; Cause of : Congestive heart failure Hypertension Father Matthew Townsend Heart attack Paternal Grandfather Myocard ial infarction; Cause of : Myocardial infarction Relation Name Status Comments Brother Alonso Townsend Paternal Grandfather Social History Tobacco Use Types Packs/Day Years Used Date Smoking Tobacco: Never Cigarettes Smokeless Tobacco: Never Tobacco Cessation:Counseling Given: Not Answered Alcohol Use Standard Drinks/Week Comments Yes 0 (1 standard drink = 0.6 oz pur e alcohol) Sex and Gender Information Value Date Recorded Sex Assigned at Not on file Legal Sex Male 6:13 AM SUPERVISOR UNLOADING Gender Identity Male 05/23/2019 11:01 AM CDT Sexual Orientation Straight 05/23/2019 11 :01 AM CDT Obstetrics History Last Filed Vital Signs Vital Sign Reading Time Taken Comments Blood Pressure 110/72 05/03/2024 8:57 AM SUPERVISOR UNLOADING Pulse 84 05/03/2024 8:57 AM SUPERVISOR UNLOADING Temperature 36.6 C (97.9 F) 01/24/2018 7:40 AM SUPERVISOR UNLOADING Respiratory Rate 18 02/08/2020 7:54 AM SUPERVISOR UNLOADING Oxygen Saturation 97% 05/03/2024 8:57 AM SUPERVISOR UNLOADING Inhaled Oxygen Concentration - - Weight 95.3 kg (210 lb) 05/03/2024 8:57 AM SUPERVISOR UNLOADING Height 180.3 cm (5' 11) 05/03/2024 8:57 AM SUPERVISOR UNLOADING Body Mass Index 29.29 05/03/2024 8:57 AM SUPERVISOR UNLOADING Plan of Treatment Health Maintenance Due Date Last Done Comments Colon Cancer Screening-Colonoscopy 1959 Depression Screening 1959 Hepatitis C Screening 1959 Prostate Cancer Screening-PSA 1959 DTaP/Tdap/Td Vaccine (1 - Tdap) 07/26/1970 Hepatitis B Screening 07/26/1977 Pneumococcal vaccine 65+ (1 of 2 - PCV) 07/26/1978 Zoster Vaccine (2 of 2) 03/07/2019 01/10/2019 Fall Risk Assessment 06/10/2019 06/09/2018 Well Visit 65+ 07/26/2024 Influenza Vaccine (Season Ended) 2024 Insurance [facility] H[facility]PPO Address: [facility] [address] [place] [address] [facility] Address: [facility] [address] [place] [address] Advance Directives For more information, please contact: [phone] * Full Code (Latest Code Status on File) Date Activated Date Inactivated Comments 01/22/2018 10:12 PM 01/24/2018 5:07 PM Care Teams National Park Ranger Relationship Specialty Start Date End Date Edwin Morillo MD [address] [place] [address] PCP - General 05/28/16
[2024-09-17 14:19] LABS: Estimated Glomerular Filt Rate 51
== END 2024-09-17 13:48 | disposition home or self-care (01) ==
PROVIDERS: PCP Nurse Practitioner Family; Visit Provider Internal Medicine Hematology & Oncology
DX: C83.10 Mantle cell lymphoma, unspecified site (principal); K44.9 Diaphragmatic hernia without obstruction or gangrene; K42.9 Umbilical hernia without obstruction or gangrene
CPT/HCPCS: 71260; 74177; Q9967

== ENCOUNTER 2025-01-08 10:04 | Outpatient (CLI) | payer OTHER, SELFPAY ==
--- NOTE | ~2025-01-08 | CT_ITS ---
EXAM/PROCEDURE: CT chest abdomen pelvis w con HISTORY: mantle cell lymphoma COMPARISON: September 17, 2024 TECHNIQUE: IV contrast enhanced CT of the chest abdomen and pelvis. FINDINGS: Within the chest, mild bibasilar atelectatic and/or fibrotic changes with the lungs otherwise clear. Mild cardiomegaly with no significant pericardial effusion. Urinary calcification and/or stenting, as well as left subclavian Port-A-Cath with tip extending to the lower SVC unchanged. No bulky lymphadenopathy or masses. No consolidation effusion or pneumothorax. Central and large airways are patent. Diffuse degenerative changes throughout the bones. Small to moderate-sized hiatal hernia. Within the abdomen and pelvis, extensive cystic changes throughout both kidneys noted. The bowel gas pattern is nonobstructive with no free air free fluid or pneumatosis. No bulky mesenteric or retroperitoneal lymphadenopathy or masses. No hydroureteronephrosis or AAA. Gallbladder pancreas spleen stomach and adrenal glands and appendix appear stable. Urinary bladder unremarkable. Prostate mildly enlarged. Moderate amount of stool extends to the cecum. Mild scattered diverticuli disease with no gross acute diverticulitis. Diffuse degenerative changes throughout the bones which otherwise appear intact. IMPRESSION: No gross evidence of malignant or metastatic disease in the chest abdomen or pelvis. No acute findings. Several chronic findings as above. Reviewed, dictated and finalized at location A. [employer] IMPRESSION: No gross evidence of malignant or metastatic disease in the chest abdomen or pe lvis. No acute findings. Several chronic findings as above.
[2025-01-08 10:25] LABS: Estimated Glomerular Filt Rate > 60
--- OUTSIDE RECORDS SUMMARY | 2025-01-08 10:39 | XMS_ITS | Encounter Summary ---
Author Organization [facility] Address [address] [place] [address] Care Team Providers Care Grocery Clerk Marking Name Role Phone Edwin Morillo MD Primary Care Provider + Encounter Details Date Type Department Care Team (Late st Contact Info) Description 09/21/2018 Lab Requisition [facility] DermPath Lab [address] [facility], [place] [id number] Mario Blevins MD [address] [place] [address] Social History Tobacco Use Types Packs/Day Years Used Date Smoking Tobacco: Never Assessed Sex and Gender Information Value Date Recorded Sex Assigned at Not on file Legal Sex Male 5:09 AM MEETING PLANNER Gender Identity Not on file Sexual Orientation Not on file documented as of this encounter Plan of Treatment Not on file documented as of this encounter Procedures Procedure Name Priority Date/Time Associated Diagnosis Comments DERMATOPATHOLOGY Routine 09/20/2018 12:0 0 AM CDT documented in this encounter Results * DERMATOPATHOLOGY (09/20/2018 12:00 AM CDT) Case Report Dermatopathology Report Case: [id number] Authorizing Provider: Mario Blevins MD Collected: 09/20/2018 [...] characteristic determined by the Dermatopathology Laboratory at [facility], directed by Dr. Elizabeth Parish. These tests need not be, and therefore are not, approved by the [place] Food and Drug Administration. The tests are used for clinical purposes. Billing Codes Specimen Charges Stain Charges 59920 1 12:39 PM CDT DERMATOPATHOLOGY LABORATORY Embedded Images 12:39 PM CDT DERMATOPATHOLOGY LABORATORY Pathology/Cytolog y TISSUE SPECIMEN FROM SKIN / Unknown 09/20/2018 09/21/2018 12:04 PM CDT Mario Blevins MD LAB - PATHOLOGY/CYTOLOGY ORDERA BLES Final Result DERMATOPATHOLOGY LABORATORY [facility] - Department of Dermatology [address] [facility], [address]th [place] [address], [facility] [phone] documented in this encounter Visit Diagnoses Not on filedocumented in this encounter Care Teams Grocery Clerk Marking Relationship Specialty Start Date End Date Edwin Morillo MD [address] [address] PCP - General 7/25/19 documented as of this encounter
--- OUTSIDE RECORDS SUMMARY | 2025-01-08 10:39 | XMS_ITS | Encounter Summary ---
Author Organization [facility] Address [address] [facility] [address] [place] [address] Care Team Providers Care Fashion Editor Name Role Phone Edwin Morillo MD Primary Care Prov ider Edwin Morillo MD Primary Care Prov ider Encounter Details Date Type Department Care Team (Late st Contact Info) Description 05/17/2016 Orders Only [facility] ProviderCynthia MD [address] [place], [place] [id number] Social History Tobacco Use Types Packs/Day Years Used Date Smoking Tobacco: Never Alcohol Use Standard Drinks/Week Comments Yes 0 (1 standard drink = 0.6 oz pur e alcohol) Sex and Gender Information Value Date Recorded Sex Assigned at Not on file Legal Sex Male 6:13 AM CUSTOMER SERVICES SUPERVISOR Gender Identity Male 05/23/2019 11:01 AM CDT [...] on filedocumented in this encounter Care Teams Fashion Editor Relationship Specialty Start Date End Date Edwin Morillo MD PCP - General 05/28/16 Edwin Morillo MD PCP - General 12/18/13 05/27/16 documented as of this encounter
--- OUTSIDE RECORDS SUMMARY | 2025-01-08 10:39 | XMS_ITS | Clinical Summary ---
Author Organization [facility] Mariaa Perales Address [address] [place] [address] Care Team Providers Care Players Assistant Name Role Phone Edwin Morillo MD Primary Care Provider +1- [phone] Allergies No known active allergies Medications rosuvastatin (CRESTOR) 40 mg tablet Take 40 mg by mouth daily. Active lisinopriL (PRINIVIL) 5 mg tablet Take 5 mg by mouth daily. Active escitalopram oxalate (LEXAPRO) 20 mg tablet Take 20 mg by mouth daily. Active cephALEXin (KEFLEX) 500 mg capsule TAKE 1 CAPSULE BY MOUTH 4 TIMES A DAY FOR 5 DAYS 2 Active acyclovir (ZOVIRAX) 400 mg tabletIndication s:Small B-cell lymphoma, unspecified body region (CMS/HCC) Take 1 Tablet (400 mg) by mouth 2 times daily. 60 Tablet 3 3 Active sulfamethoxazole -trimethoprim (BACTRIM DS) 800-160 mg tablet Take 1 tablet by mouth every Tuesday, Tuesday, and Tuesday. 12 Tablet 3 3 Active ondansetron (ZOFRAN ODT) 8 mg Tablet, Rapid DissolveIndicati ons:Small B-cell lymphoma, unspecified body region (CMS/HCC) Dissolve 1 tablet on top of tongue then swallow with saliva every 8 hours as needed for nausea or vomiting 30 Tablet 4 Active apixaban (Eliquis) 2.5 mg tabletIndication s:Recurrent pulmonary embolism (CMS/HCC) Take 1 Tablet (2.5 mg) by mouth 2 times daily. 180 Tablet 2 Active lidocaine-priloc bandar (EMLA) 2.5-2.5 % CreamIndications :Small B-cell lymphoma, unspecified body region (CMS/HCC) Apply a quarter size amount to port site 30 minutes before access. 30 Gram 1 Active Active Problems Problem Noted Date Diagnosed Date Leukemia, lymphocytic, chronic 10/26/2022 Tinnitus 12/18/2020 Recurrent pulmonary embolism 12/18/2020 Encounters Date Type Department Care Team Description 12/31/2024 Orders Only [facility] Oncology and Hematology - [place] [address] [place] [id number] Trung Truong MD Mantle cell lymphoma, unspecified body region (CMS/HCC) 12/19/2024 External Device Data STL ABSTRACTION Provider, Abstract 12/17/2024 Orders Only [facility] Oncology and Hematology - Alfred [address] [place] [id number] Trung Truong MD Mantle cell lymphoma, unspecified body region (CMS/HCC) 12/03/2024 Orders Only [facility] Oncology and Hematology - Alfred [address] [place] [id number] Trung Truong MD Mantle cell lymphoma, unspecified body region (CMS/HCC) 11/21/2024 Orders Only [facility] Oncology and Hematology - Alfred [address] [place] [address] Trung Truong MD 11/20/2024 8:30 AM CDT Office Visit [facility] Oncology and Hematology - Alfred [address] [place] [address] Trung Truong MD Mantle cell lymphoma, unspecified body region (CMS/HCC) (Primary Dx) 11/19/2024 Orders Only [facility] Oncology and Hematology - Alfred [address] [place] [address] Trung Truong MD Mantle cell lymphoma, unspecified body region (CMS/HCC) 11/05/2024 Orders Only [facility] Oncology and Hematology - Alfred [address] [place] [address] Trung Truong MD Mantle cell lymphoma, unspecified body region (CMS/HCC) 10/22/2024 Orders Only [facility] Oncology and Hematology - [address] [place] [address] Trung Truong MD Mantle cell lymphoma, unspecified body region (CMS/HCC) 10/16/2024 External Device Data STL ABSTRACTION Provider, Abstract 10/08/2024 Orders Only [facility] Oncology and Hematology - [place] [address] [place] [address] Trung Truong MD Mantle cell lymphoma, unspecified [...] Sign Reading Time Taken Comments Blood Pressure 122/74 11/20/2024 8:35 AM CDT Pulse 86 11/20/2024 8:35 AM CDT Temperature 36.3 C (97.3 F) 11/20/2024 8:35 AM CDT Respiratory Rate 15 11/20/2024 8:35 AM CDT Oxygen Saturation 96% 11/20/2024 8:35 AM CDT Inhaled Oxygen Concentration - - Weight 93.3 kg (205 lb 9.6 oz) 11/20/2024 8:35 A M CDT Height 180.3 cm (5' 11) 09/15/2022 8:41 AM CDT Body Mass Index 28.68 09/15/2022 8:41 AM CDT Plan of Treatment Upcoming Encounters Date Type Department Care Team (Late st Contact Info) Description 01/15/2025 8:30 AM BRICK STACKER Office Visit [facility] Oncology and Hematology - [place] [address] [place] [address] Erica Feldman MD [address] [place] [address] Health Maintenance Due Date Last [...] Procedure Name Priority Date/Time Associated Diagnosis Comments COMPREHENSIVE METABOLIC PANEL Routine 11/20/2024 12:59 PM CDT from Last 3 Months Results * COMPREHENSIVE METABOLIC PANEL (11/20/2024 12:59 PM CDT) Blood Trung Truong MD CHEMISTRY ORDERABLES Final Resu lt from Last 3 Months Insurance [facility] [id number] [facility] [id number] Care Teams Players Assistant Relationship Specialty Start Date End Date Edwin Morillo MD PCP - General Family Practice 12/18/20
--- OUTSIDE RECORDS SUMMARY | 2025-01-08 10:39 | XMS_ITS | Clinical Summary ---
Author Organization [facility] Address [address] [place] [address] Phone Care Team Providers Care Knife Edger Name Role Phone Edwin Mcneill MD Primary Care Provider +1- [phone] Allergies No known active allergies Medications Repatha [...] Vaccine (#1) 2024 Insurance [employer] Care Teams Knife Edger Relationship Specialty Start Date End Date Edwin Mcneill MD [address] [address] PCP - General Family Medicine 12/12/20
--- OUTSIDE RECORDS SUMMARY | 2025-01-08 10:39 | XMS_ITS | Clinical Summary ---
Author Organization [facility] [address] Address [address] [place] [address] Care Team Providers Care Traffic Law Attorney Name Role Phone Edwin Morillo MD Primary [...] embolism 01/23/2018 Coronary artery disease invo lving capitan grande band coronary artery of capitan grande band heart without angina pectoris 04/30/2016 Overview (07/23/2016): Coronary artery disease involving capitan grande band coronary artery of capitan grande band heart without angina pectoris Benign hypertension 04/30/2016 [...] on file Legal Sex Male 6:13 AM CHIMNEY MECHANIC Gender Identity Male 05/23/2019 11:01 AM CDT Sexual Orientation Straight 05/23/2019 11 :01 AM CDT Last Filed Vital Signs Vital Sign Reading Time Taken Comments Blood Pressure 110/72 05/03/2024 8:57 AM CHIMNEY MECHANIC Pulse 84 05/03/2024 8:57 AM CHIMNEY MECHANIC Temperature 36.6 C (97.9 F) 01/24/2018 7:40 AM CHIMNEY MECHANIC Respiratory Rate 18 02/08/2020 7:54 AM CHIMNEY MECHANIC Oxygen Saturation 97% 05/03/2024 8:57 AM CHIMNEY MECHANIC Inhaled Oxygen Concentration - - Weight 95.3 kg (210 lb) 05/03/2024 8:57 AM CHIMNEY MECHANIC Height 180.3 cm (5' 11) 05/03/2024 8:57 AM CHIMNEY MECHANIC Body Mass Index 29.29 05/03/2024 8:57 AM CHIMNEY MECHANIC Plan of Treatment Health Maintenance Due Date Last Done Comments Colon Cancer Screening-Colonoscopy 1959 Depression Screening 1959 Hepatitis C Screening 1959 Prostate Cancer Screening-PSA 1959 DTaP/Tdap/Td Vaccine (1 - Tdap) 07/26/1970 Hepatitis B Screening 07/26/1977 Pneumococcal vaccine 65+ (1 of 2 - PCV) 07/26/1978 Zoster Vaccine (2 of 2) 03/07/2019 01/10/2019 Fall Risk Assessment 06/10/2019 06/09/2018 Well Visit 65+ 07/26/2024 Influenza Vaccine (#1) 2024 Insurance [facility] HMO/PPO Address: [facility] [address] [place] [address] [facility] HMO/PPO Address: [address] [address] [place] [address] Advance Directives For more information, please contact: [phone] * Full Code (Latest Code Status on File) Date Activated Date Inactivated Comments 01/22/2018 10:12 PM 01/24/2018 5:07 PM Care Teams Traffic Law Attorney Relationship Specialty Start Date End Date Edwin Morillo MD PCP - General 05/28/16
--- OUTSIDE RECORDS SUMMARY | 2025-01-08 10:39 | XMS_ITS | Encounter Summary ---
Author Organization [facility] Address [address] [facility] [address] [place] [address] Care Team Providers Care Tailor Fitter Name Role Phone Edwin Morillo MD Primary Care Prov ider Edwin Morillo MD Primary Care Prov ider Encounter Details Date Type Department Care Team (Late st Contact Info) Description 04/30/2016 Orders Only [facility] ProviderCynthia MD [address] [place] [address] Social History Tobacco Use Types Packs/Day Years Used Date Smoking Tobacco: Never Alcohol Use Standard Drinks/Week Comments Yes 0 (1 standard drink = 0.6 oz pur e alcohol) Sex and Gender Information Value Date Recorded Sex Assigned at Not on file Legal Sex Male 6:13 AM SHIP PURSER Gender Identity Male 05/23/2019 11:01 AM CDT Sexual Orientation Straight 05/23/2019 11 :01 AM CDT documented as of this encounter Functional Status documented as of this encounter Plan of [...] on filedocumented in this encounter Care Teams Tailor Fitter Relationship Specialty Start Date End Date Edwin Morillo MD PCP - General 05/28/16 Edwin Morillo MD PCP - General 12/18/13 05/27/16 documented as of this encounter
--- OUTSIDE RECORDS SUMMARY | 2025-01-08 10:39 | XMS_ITS | Clinical Summary ---
Author Organization [facility] Address [address] [facility] [place] [address] Care Team Providers Care Ocean Lifeguard Specialist Name Role Phone Edwin Morillo MD Primary Care Provider + Source Comments [facility],non-owned Affiliates and Associated Physician Practices is amultiple site organization consisting of ambulatory clinics and hospital sitesin [place], [place], [place] and [place]. This disclosure is being madepursuant to the Care Everywhere program and may not contain all informatio navailable regarding this patient. Last updated 17.[facility] Social History Tobacco Use Types Packs/Day Years Used Date Smoking Tobacco: Never Assessed Sex and Gender Information Value Date Recorded Sex Assigned at Not on file Legal Sex Male 5:09 AM TIRE SERVICE SUPERVISOR Gender Identity Not on file Sexual Orientation [...] 07/26/2009 ZOSTER VACCINE (1 of 2) 07/26/2009 DEPRESSION SCREENING 02/29/2024 COVID-19 VACCINE (1 - 2023-2 5 season) 2024 INFLUENZA VACCINE (#1) 2024 Respiratory Syncytial Virus [...] to complete this topic Insurance Care Teams Ocean Lifeguard Specialist Relationship Specialty Start Date End Date Edwin Morillo MD [address] [place] [id number] PCP - General 09/21/18
== END 2025-01-08 10:05 | disposition home or self-care (01) ==
PROVIDERS: PCP Nurse Practitioner Family; Visit Provider Internal Medicine Hematology & Oncology
DX: C83.10 Mantle cell lymphoma, unspecified site (principal)
CPT/HCPCS: 71260; 74177; Q9967